=== PATIENT | male | born 1955 | race Caucasian/White ===

== ENCOUNTER 2016-07-24 16:44 | Inpatient (IN) | payer MEDICARE, SELFPAY ==
--- NOTE | ~2016-07-24 | DS ---
Unit #: [id number] #: [id number] Patient: ANJUM DEVRIES [id number] [address] [place], [place] [address] [id number] I MR#: [id number] NAME: ANJUM DEVRIES ROOM: [facility] Age: 61 Sex: M Admission Date: 07/24/2016 : 1955 Discharge Date: 07/29/2016 Attending Physician: Severino Clemons M.D. Primary Care Physician: Prashanth Black M.D. 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 PROCEDURES IN HOSPITAL Removal of broken plate and screws and distal femoral replacement with revision total knee. HOSPITAL COURSE The patient was admitted through the emergency room on 07/24/2016, when he was walking at home and his plate broke. He subsequently was taken to the operating room a day or so later, where he underwent the revision total knee with a distal femoral replacement prosthesis. He has been up with physical therapy. He is ambulating. As wound looks good, it was felt that he can be discharged home today. His hemoglobin is 8.5. His INR is 2.5. He will be discharged on Coumadin 2.5 mg daily. We will check his protime tomorrow and and adjust his dose appropriately. His pradeep to do remain in place for 2 weeks and he will have home physical therapy. His condition on discharge is improved. His medications on discharge are his routine home medicines plus Percocet 10/325 for pain and Coumadin 2.5 mg daily for DVT prophylaxis. Dictated by... Deann Weller/amairani TD: 07/29/2016 11:23 JOB #: [id number] DISCHARGE SUMMARY X Severino Clemons MD X DISCHARGE SUMMARY
--- NOTE | ~2016-07-24 | CO ---
Unit #: [id number] #: [id number] Patient: ANJUM DEVRIES WAY [id number] [address] [place], [place] [address] [id number] I MR#: [id number] NAME: ANJUM DEVRIES ROOM: [facility] Age: 61 Sex: M Admission Date: 07/24/2016 : 1955 Attending Physician: Severino Clemons M.D. Primary Care Physician: Prashanth Black M.D. CONSULTATION REPORT This is Dr. Gil demarcoating. REASON FOR CONSULTATION Preop clearance for the revision of the right total knee with plate removal. HISTORY OF PRESENT ILLNESS The patient is a 61-year-old male with history of right femur fracture, status post ORIF of the right femur on 12/26/2015, was seen by the Orthopedics and Medicine in the past for the revision of the right total knee with plate removal as scheduled on 07/2016. However, the patient was having high sugar and the procedure was scheduled for later time. The patient presented to the emergency room today complaining of right lower extremity injury with worsening pain. The patient said that the patient heard the popping sound around the knee and consult for the fracture. The patient's sugar has been running between 100 to 170s and the patient was evaluated by the Cardiology by Dr. Joseph and Medicine for the clearance in the past. Denies any fever, chills, nausea, vomiting, chest pain, dizziness. Denies any trauma. PAST MEDICAL HISTORY History of osteoarthritis, history of coronary artery disease, status post myocardial infarction with stent placement to the proximal right RCA. Hyperlipidemia, diabetes mellitus uncontrolled, depression, obesity, peripheral neuropathy, history of GERD, proteinuria, mild hyponatremia, history of nonsustained ventricular tachycardia, risk factor for obstructive sleep apnea, history of anemia, chronic low back pain, history of tobacco abuse. PAST SURGICAL HISTORY Right knee arthroplasty, right hip arthroplasty, pleural cavity biopsy, placement of cardiac stent x1 in 09/2015, left foot fracture and repair, right femur fracture and repair, gastric bypass surgery. ALLERGIES No known drug allergies. HOME MEDICATIONS He is on low dose aspirin, Lipitor, carvedilol, Coreg, Celexa, Plavix, Januvia, Levemir, Prinivil, metformin, hydrocodone, and Humalog. SOCIAL HISTORY Stopped smoking in 09/2015. He has history of tobacco abuse. Denies alcohol or illicit drug abuse. Unit #: [id number] #: [id number] Patient: ANJUM DEVRIES FAMILY HISTORY Mother with arthritis. REVIEW OF SYSTEMS 14-point review of systems performed and only pertinent positives are described, but remaining are negative. PHYSICAL EXAMINATION GENERAL: The patient is lying on bed, not in acute distress. VITAL SIGNS: Temperature 97.6, pulse 120, respiratory rate 18, blood pressure 105/64, saturating 95% on room air. HEENT: Head, atraumatic, normocephalic. Pupils equal, round, and reactive to light and accommodation. Moist mucous membrane. NECK: Supple. No JVD. LUNGS: Clear to auscultation bilaterally. No rhonchi. No wheezing. HEART: Regular rate and rhythm. ABDOMEN: Soft. Positive bowel sounds. EXTREMITIES: Right lower extremity edema without cyanosis, without clubbing. MUSCULOSKELETAL: Strength 5/5 in all extremities bilaterally to flexion and extension and decreased range of motion in the lower extremities and the patient has old surgical scars and minimal erythema at the middle side of the knee. NEUROLOGIC: Alert, awake, and oriented. No gross focal motor deficit. DIAGNOSTIC STUDIES LABORATORY RESULTS: Glucose 118, BUN 27, creatinine 1.3, sodium 139, potassium 4.5, chloride 104, bicarb 25, calcium 9.5. INR is 1. WBC 13.6, hemoglobin 11.1, hematocrit 35.2, platelet 168. IMAGING STUDIES: The patient had x-ray of the right femur shows complex orthopedic hardware failure with a fracture that is displaced loosely somewhat and displacement of the fracture of the plate and nonhealing of the fracture. ASSESSMENT AND PLAN Hardware failure with fracture of the lateral plate. Awaiting revision of the right total knee possible right total knee removal with plate removal. The patient's [place] Revised Cardiac Risk Index is equal to 2.5 to 5.4 given the patient's history of myocardial infarction, cerebrovascular accident, and insulin dependent diabetes mellitus. The patient has been seen by Cardiology and cleared for the procedure with acceptable cardiac risk. Diabetes mellitus insulin dependent. The patient's hemoglobin A1c was 11.1. Continue with insulin and tight glucose control. Check UA and EKG and the patient will be cleared for the surgery after the UA to rule out infection. We will check the EKG to rule out any arrhythmias or the ischemia. Further recommendations will follow as more lab results are available. Thank you for allowing us to see your patient and will follow the patient closely during the hospitalization. Dictated by.Deann Franco/amairani Unit #: [id number] #: [id number] Patient: ANJUM DEVRIES TD: 07/25/2016 10:08 JOB #: [id number] CONSULTATION REPORT X X CONSULTATION REPORT
--- NOTE | ~2016-07-24 | CR107 ---
[facility] A Service of [facility] RADIOLOGY TEXT RESULTS PATIENT: ANJUM DEVRIES LOCATION: C4B 448-01 : [birth year] UNIT #: [id number] AGE: [address]: Severino Clemons MD SEX: M ORDER DR: [id number] [facility] [address] [facility]. [place], [place] [address] [id number] I MR#: [id number] Acc #: [id number] NAME: ANJUM DEVRIES : 1955 SEX: M STUDY DATE/TIME: 07/24/2016 16:51 UNIT: [facility] ROOM: [facility] STUDY DESCRIPTION: CR Femur 2 Views Rt Attending Physician: Severino Clemons M.D. Ordering Physician: Omar Perez M.D. Primary Care Physician: Prashanth Black M.D. MEDICAL IMAGING REPORT This report is preliminary unless electronic signature is present EXAM Right femur 2 views HISTORY Right hip and femur pain since December 2015. Patient fractured femur. FINDINGS 2 views of the right femur demonstrates postoperative changes right total hip arthroplasty with noncemented acetabular and femoral component. These appear in expected position and alignment. Patient is status post ORIF and fixation of a complex distal femur fracture. There is fracturing through the lateral plate instrumentation with a fracture about 11 cm proximal to the distal fixation plate. Lucency across the [place] femur may indicate recurrent fracture. The patient has undergone a right total knee arthroplasty. Mild anterior angulation at the distal fracture site of the distal femur. Lucency about some of the distal screws suggest possible loosening of the distal instrumentation. IMPRESSION Complex orthopedic reconstruction of the right femur. There is apparent instrumentation failure with fracturing through the lateral side plate transfixing the patient's distal supracondylar femur fracture. This represents a complete fracture and is displaced about 5 mm and there is about a centimeter of overlap. Prominent lucency through the site of the patient's initial repair may represent a recurrent fracturing through the distal femur although this could also just represent incomplete union. There is also questionable loosening of the distal fixation screws of the lateral fixation plate as well as possible fracturing through 1 of the more distal screws. I suspect this is of secondary concern given the instrumentation failure. Dictated by... Cnidy Peterson M.D. [facility] A Service of [facility] RADIOLOGY TEXT RESULTS PATIENT: ANJUM DEVRIES LOCATION: [place] [id number] : [birth year] UNIT #: [id number] AGE: [address]: Severino Clemons MD SEX: M ORDER DR: THIS IS AN ELECTRONICALLY VERIFIED REPORT Cindy Peterson M.D. at 07/25/2016 2:05 PM CARLTON/elvira TD: 07/25/2016 09:06 JOB #: [id number] MEDICAL IMAGING REPORT COPY
--- NOTE | ~2016-07-24 | EKG ---
PATIENT: ANJUM DEVRIES UNIT #: [id number] Ventricular Rate: 112 BPM Atrial Rate: 112 BPM P-R Interval: 170 ms QRS Duration: 80 ms Q-T Interval: 312 ms QTC Calculation(Bezet): 425 ms P [place]: 78 degrees Calculated R [place]: 32 degrees Calculated T [place]: 42 degrees Diagnosis Line: Sinus tachycardia Diagnosis Line: Otherwise normal ECG Diagnosis Line: When compared with ECG of 25-DEC-2015 19:09, Diagnosis Line: No significant change was found Diagnosis Line: Confirmed by TIM CHICAS MD ([id number]) on 07/25/2016 Diagnosis Line: 9:56:37 PM INTERPRETING MD: JUAN FRANCISCO MALAVE
--- NOTE | ~2016-07-24 | HP ---
Unit #: [id number] #: [id number] Patient: ANJUM WILLINGHAM [id number] [address] [place], [place] [address] [id number] I MR#: [id number] NAME: ANJUM WILLINGHAM ROOM: [facility] Age: 61 Sex: M Admission Date: 07/24/2016 : 1955 Attending Physician: Severino Clemons M.D. Primary Care Physician: Prashanth Black M.D. HISTORY AND PHYSICAL REASON FOR ADMISSION Right femur fracture with broken hardware. HISTORY OF PRESENT ILLNESS Mr. Willingham is a pleasant 61-year-old male who presents today with right distal femur periprosthetic fracture and broken hardware plate located at the lateral midshaft right femur. The patient reports that on July 16, 2016 he was scheduled to undergo right total knee revision for his distal femur periprosthetic nonunion fracture. However, his A1C was too high. He was then sent to see a styrene dehydration reactor operator. He reports his sugars are much improved. He is doing much better. Then, yesterday on 07/24/2016 the patient stepped "wrong" at home and broke his brace that was supporting his right lower extremity. The knee gave out on him. He reports he cannot bear weight. He does have a lot of movement within the distal femur according to the patient. There is no numbness but positive weakness and instability due to pain. PAST MEDICAL HISTORY 1. Hypertension. 2. Diabetes. 3. AVN of the right hip. 4. Depression. 5. GERD. 6. Stroke. MEDICATIONS Medications include metformin, Januvia, Plavix, Levemir, aspirin, lisinopril, Coreg, Lipitor, Celexa. ALLERGIES No known drug allergies. SURGICAL HISTORY 1. Right total knee arthroplasty. 2. Right distal femur ORIF. 3. Right total hip arthroplasty. 4. Lung biopsy. SOCIAL HISTORY Patient lives at home with his . He is a former smoker, quit in 2016. He denies any alcohol or illicit drug use. FAMILY HISTORY Family history is insignificant. Unit #: [id number] #: [id number] Patient: ANJUM WILLINGHAM REVIEW OF SYSTEMS Ten organ systems reviewed. The patient denies any blurry vision, congestion, sore throat, shortness of breath, chest pain, abdominal pain, urinary incontinence, numbness, tingling, skin ulcers or lesions, anxiety, depression. Positive for joint pain. PHYSICAL EXAMINATION GENERAL: No acute distress. Alert and oriented x3. VITALS: Temp 98.9, pulse 114, respirations 18, blood pressure 137/78. HEENT: PERRLA. Nonicteric sclera. THORAX: Trachea midline. No thyromegaly. CARDIAC: S1, S2. No extra sounds. No murmurs. LUNGS: Clear to auscultation. No rales or rhonchi. ABDOMEN: Nondistended, nontender. Positive bowel sounds. : Deferred. MUSCULOSKELETAL: No erythema or ecchymosis; 2+ dorsalis pedis bilateral pulses. NEUROLOGIC: Cranial nerves II-XII intact. SKIN: Cool and dry. PSYCHIATRIC: Good insight. Good judgment. Mood and affect are pleasant. DIAGNOSTIC STUDIES LABS ON ADMISSION: White count 9.7, hemoglobin 10, hematocrit 31.8, platelets 141. INR is 1. Sodium 138, potassium 4.1, chloride 106, bicarb 27, BUN 29, creatinine 1.1, glucose 189. X-RAYS: Two views of the right hip and the right femur were ordered and reviewed today in the office and shows a nonunion right distal femur periprosthetic fracture with broken hardware plate at the lateral midshaft right femur. ASSESSMENT Nonunion right distal periprosthetic femur fracture with broken hardware. PLAN I have discussed treatment options with the patient. I have recommended a right total knee revision to be done by Dr. Clemons this afternoon. The risks and benefits of the procedure were explained, as well as the description of the procedure in its entirety, along with any complications. The patient has decided to proceed. Will go ahead and get this scheduled, get the usual preoperative lab work and testing complete and have the patient medically cleared for surgery. We will have physical therapy see the patient postoperatively. The patient will plan for home with home health either Saturday or Saturday depending on physical therapy and pain control. Dictated by Davon Granger TD: 07/25/2016 10:45 JOB #: [id number] Unit #: [id number] #: [id number] Patient: ANJUM WILLINGHAM HISTORY AND PHYSICAL X Renu Denny X HISTORY AND PHYSICAL
--- NOTE | ~2016-07-24 | OR ---
Unit #: [id number] #: [id number] Patient: ANJUM DERVIES WAY [id number] [address] [place], [place] [address] [id number] I MR#: [id number] NAME: ANJUM DEVRIES ROOM: [facility] Date of Procedure: 07/25/2016 Admission Date: 07/24/2016 Surgeon: Severino Clemons M.D. : 1955 Attending Physician: Severino Clemons M.D. Primary Care Physician: Prashanth Black M.D. OPERATIVE REPORT PREOPERATIVE DIAGNOSIS Nonunion right distal femoral periprosthetic fracture with failed plate. POSTOPERATIVE DIAGNOSIS Nonunion right distal femoral periprosthetic fracture with failed plate. PROCEDURE PERFORMED Removal of failed hardware and distal femoral replacement with revision total knee. ASSISTANTS Tyron Spangler and Jigna Navarro. ANESTHESIA Adductor canal block plus general. ESTIMATED BLOOD LOSS About 400. OPERATIVE INDICATION This is a 61-year-old gentleman, who has had a total knee in the past and suffered a periprosthetic femur fracture that I plated, he was gone onto nonunion and yesterday he was standing at home felt a pop and was unable to bear weight, came to the emergency room and was found to have a fracture in the plate. He is brought to the operating room today for removal of failed hardware and revision knee surgery with distal femoral replacement. DESCRIPTION OF PROCEDURE The patient was brought to the holding room, given appropriate preoperatively antibiotics. These will be continued postop, but discontinued within 23 hours the start time of surgery. The patient was then given a general anesthetic. He was on a beanbag. He was placed in a slight lateral position, so that we could use the proximal portion of the lateral incision to remove the proximal portion of the broken plate. A straight lateral incision was made. Subcutaneous dissected away and the fascia was split and then the vastus lateralis was split exposing the proximal portion of the plate. There were 2 cerclage cables at the top. These were cut. We then removed all the screws from this portion of the plate and then lifted the plate out. The 2 cerclage cables were also removed. We then irrigated this wound out and closed the vastus lateralis with interrupted 0 Vicryl. The tensor fascia was closed with a running 0 Unit #: [id number] #: [id number] Patient: ANJUM DEVRIES Vicryl. Subcutaneous was closed with 0 Vicryl and pradeep. Sterile dressing was applied over this. We then applied a sterile tourniquet on the proximal portion of the thigh. This was inflated to 250. The anterior knee incision was used and the incision was carried proximally and medially. The subcutaneous dissected away. Medial arthrotomy performed. The fluid was cultured, but it was bloody. The patella was slid to the side. The arthrotomy was extended proximally and we then removed the polyethylene from the tibial tray. We then proceeded to excise the distal fragment of bone and the femoral component subperiosteally around the entire distal femur. Before we did this, we had measured that it was 110 mm to the joint line from the fracture spot. With careful dissection especially posteriorly, we were able to resect the distal femoral bone and the remaining plate was still attached as was the femoral component. Once this was out, we loosened the tibial component and removed this along with the cement. The patellar component was inspected and it was found to be intact. We then released the tourniquet to be sure there had been no vascular injuries posteriorly. There was minimal bleeding. A few small veins were identified. These were cauterized and then after this was done, the tourniquet was reinflated. We then exposed the distal end of the proximal femur, placed this 16-gauge cerclage wire around this and tightened it down, but did not cut it to used as a retractor. We then reamed the canal and then the conical reamer was used for the [place] femoral sleeve and the broaches were used up to a size 31. This was still sitting proud, but it seemed to be a very tight fit. We then reamed the tibia up to a 14 x 75. I used the conical reamer and then the broaches for the MBT sleeve up to a 53. The tibia was sized at a 2.5. We then did a trial reduction with an extra-small right LPS distal femoral replacement and we had to use a +5 sleeve adapter and a 25 mm segmental component to give appropriate leg length. With the trials in place, the patella seemed to fit at the appropriate position in the trochlear groove while the knee was in full extension. We then removed all the trials. The real components were opened. The tibia was assembled. Two packages of cement were mixed. The tibia was impacted cementing under the tray only. The femur was then applied uncemented with the femoral component. External rotation adjusted appropriately. We then found that we needed the 14 mm hinged insert for the tray gave appropriate soft tissue tension, so the 14 mm for the extra small component was opened and applied to the tibia. The hinged pin was positioned and the knee had an excellent range of motion and the patella tracked appropriately. The tourniquet was released once again. The knee was irrigated out with Betadine and bacitracin. We then used the ropivacaine injection. A drain was positioned. The medial arthrotomy was closed with 0 Ethibond and this extension superiorly was closed with 0 Vicryl. The subcutaneous was closed with 0 and 2-0 Vicryl and pradeep in the skin and the patient's dressing was applied and the general anesthetic reversed. Both assistants, Tyron Spangler and Jigna Navarro, were present throughout the entire case. Dictated by... Deann Weller/amairani TD: 07/26/2016 07:18 JOB #: [id number] Unit #: [id number] #: [id number] Patient: ANJUM DEVRIES OPERATIVE REPORT X Severino Clemons MD X PROCEDURE OPERATIVE NOTE
--- NOTE | ~2016-07-24 | CR170 ---
[facility] A Service of [facility] RADIOLOGY TEXT RESULTS PATIENT: ANJUM DEVRIES LOCATION: [place] [address]- : [birth year] UNIT #: [id number] AGE: [address]: Severino Clemons MD SEX: M ORDER DR: [id number] [facility] [address] [facility]. [place], [place] [address] [id number] I MR#: [id number] Acc #: [id number] NAME: ANJUM DEVRIES : 1955 SEX: M STUDY DATE/TIME: 07/25/2016 16:55 UNIT: [facility] ROOM: [facility] STUDY DESCRIPTION: CR Knee 2 Views Rt Attending Physician: Severino Clemons M.D. Ordering Physician: Severino Clemons M.D. Primary Care Physician: Prashanth Black M.D. MEDICAL IMAGING REPORT This report is preliminary unless electronic signature is present EXAM Right knee 2 views HISTORY Status post right knee replacement with hardware failure. COMPARISON 12/25/2015 FINDINGS 2 views of the right knee demonstrate modular component replacement of patient's right knee, right total knee arthroplasty. This is apparently a constrained component. Normal expected alignment. Soft tissue swelling and soft tissue gas noted consistent with recent operative intervention. Lateral drains identified. Lateral skin pradeep also noted. IMPRESSION Status post apparent revision arthroplasty right knee with placement of a modular constrained right knee component in expected position and alignment with normal expected postoperative findings. Dictated by... Cindy Peterson M.D. THIS IS AN ELECTRONICALLY VERIFIED REPORT Cindy Peterson M.D. at 07/26/2016 8:42 PM Babs TD: 07/26/2016 08:16 JOB #: [id number] MEDICAL IMAGING REPORT COPY
--- NOTE | ~2016-07-24 | CR151 ---
[facility] A Service of [facility] RADIOLOGY TEXT RESULTS PATIENT: ANJUM DEVRIES LOCATION: [facility] 448- : [birth year] UNIT #: [id number] AGE: [address]: Severino Clemons MD SEX: M ORDER DR: [id number] [place] [id number] [facility]. [place], [place] [address] [id number] I MR#: [id number] Acc #: [id number] NAME: ANJUM DEVRIES : 1955 SEX: M STUDY DATE/TIME: 07/24/2016 16:49 UNIT: [facility] ROOM: [facility] STUDY DESCRIPTION: CR Hip Min 2 Views Rt Attending Physician: Severino Clemons M.D. Ordering Physician: Omar Perez M.D. Primary Care Physician: Prashanth Black M.D. MEDICAL IMAGING REPORT This report is preliminary unless electronic signature is present EXAM Right hip. HISTORY 61-year-old male complains of right hip pain since December 2015. Patient suffered a fracture December 2015, pain radiating to knee. TECHNIQUE AP pelvis and frog lateral view of the right hip submitted. FINDINGS Patient status post right total hip arthroplasty with noncemented acetabular and femoral component. No evidence of a periprosthetic fracture or loosening. Partially visualized is plate and screw fixation and tension band wires around the proximal fixation plate from apparent ORIF of a right femur fracture. Soft tissues unremarkable. IMPRESSION Status post right total hip arthroplasty. No evidence of a periprosthetic fracture or loosening. Partially visualizes is instrumentation from ORIF of a right femur fracture. Dictated by... Cindy Peterson M.D. THIS IS AN ELECTRONICALLY VERIFIED REPORT Cindy Peterson M.D. at 07/25/2016 2:05 PM CARLTON/leodan TD: 07/25/2016 09:01 JOB #: [id number] [facility] A Service of [facility] RADIOLOGY TEXT RESULTS PATIENT: ANJUM DEVRIES LOCATION: [facility] 448- : [birth year] UNIT #: [id number] AGE: [address]: Severino Clemons MD SEX: M ORDER DR: MEDICAL IMAGING REPORT COPY
[~2016-07-24 16:44] MED LIST: ASPIRIN81 M2 PO; ASPIRIN81 MG PO; BRILINTA90 MG PO; CELEXA20 M1; CELEXA20 M1 PO; CENTRUM SILVER PO; CLOPIDOGREL75 MG PO; COREG6.25 M1; COREG6.25 MG PO; COUMADIN7.5 MG PO; CYMBALTA30 MG PO; GLUCOPHAGE XR750 MG PO; GLUCOTROL PO; HYDROCODON-ACE1 EAC1 PO; HYDROCODON-ACE1 EAC5 PO; INSULIN PEN; JANUVIA PO; LEVEMIR100 UNITS/ SUBQ; LIPITOR40 MG PO; LISINOPRIL2.5 MG PO; LISINOPRIL5 MG PO; LOVENOX40 MG/0.4 INJ; METFORMIN HCL850 MG PO; METFORMIN HYDRO25 GM PO; MOBIC15 MG PO; NEURONTIN300 MG PO; NICOTINE TRANSD21 MG EXT; NO MEDICATIONS; PRAVACHOL20 MG PO; TOPROL XL50 MG PO; TYLENOL325 M1 PO; ZESTRIL5 MG PO
[2016-07-24] MEDS ORDERED: LIPITOR40 MG PO (18:06)
[2016-07-24] MEDS ORDERED: LOW DOSE ASPIRI81 M1 PO (18:06)
[2016-07-24] MEDS ORDERED: COREG6.25 MG PO (18:07)
[2016-07-24] MEDS ORDERED: COREG12.5 MG PO (18:07)
[2016-07-24] MEDS ORDERED: JANUVIA PO (18:08)
[2016-07-24] MEDS ORDERED: CLOPIDOGREL75 MG PO (18:08)
[2016-07-24] MEDS ORDERED: CELEXA20 MG PO (18:08)
[2016-07-24] MEDS ORDERED: LEVEMIR100 UNITS/ SUBQ (18:09)
[2016-07-24] MEDS ORDERED: PRINIVIL5 MG PO (18:09)
[2016-07-24] MEDS ORDERED: METFORMIN HCL750 MG PO (18:10)
[2016-07-24] MEDS ORDERED: HYDROCODON-ACE1 EAC5 PO (18:11)
[2016-07-24] MEDS ORDERED: HUMALOG100 U/ML SUBQ (18:11)
[2016-07-24 18:14] LABS: BASOPHIL# 0.1 X10e3 (0-0.3); BASOPHIL% 0.8 % (0-2.5); EOSINOPHIL# 0.1 X10e3 (0-0.7); EOSINOPHIL% 0.9 % (0.0-7.0); HEMATOCRIT 35.2 % (38.0-50.0); HEMOGLOBIN 11.1 gm/dL (13.0-16.0); LYMPHOCYTE# 2.8 X10e3 (1.0-3.5); LYMPHOCYTE% 20.9 % (17.0-45.0); MEAN CELL VOLUME 84.9 FL (83-96); MEAN CORPUSCULAR HEMOGLOBIN 26.8 PG (28-34); MEAN CORPUSCULAR HGB CONC 31.5 g/dL (30-36); MEAN PLATELET VOLUME 9.7 FL (6.5-11.5); MONOCYTE% 7.7 % (3.0-12.0); NEUTROPHIL# 9.5 X10e3 (1.5-7.1); NEUTROPHIL% 69.7 % (40-75); PLATELET COUNT 168 X10e3 (140-420); RED BLOOD COUNT 4.15 X10e (3.90-5.60); RED CELL DISTRIBUTION WIDTH 14.9 % (11.0-15.5); WHITE BLOOD COUNT 13.6 X10e3 (4.0-10.5)
[2016-07-24 18:15] LABS: DIFF IND NO
[2016-07-24 18:22] LABS: PARTIAL THROMBOPLASTIN TIME 25.6 SECONDS (23.5-31.3); PROTHROMBIN TIME (PATIENT) 10.7 SECONDS (9.6-11.5)
[2016-07-24 18:33] LABS: BUN/CREATININE RATIO 20.76; CALCIUM SERUM 9.5 mg/dL (8.4-10.2); CREATININE SERUM 1.3 mg/dL (0.6-1.4); GLOM FILT RATE Estimated 59.8 mL/min (>60); POTASSIUM 4.5 mmol/L (3.5-5.1)
[2016-07-24 23:42] LABS: URINE BILIRUBIN NEG (NEG); URINE BLOOD 1+ (NEG); URINE GLUCOSE NORM (NORM); URINE KETONE NEG (NEG); URINE LEUKOCYTE ESTERASE NEG (NEG); URINE NITRATE NEG (NEG); URINE PROTEIN 2+ (NEG); URINE SPECIFIC GRAVITY 1.025 (1.003-1.035); URINE UROBILINOGEN NORM (NORM)
[2016-07-24 23:44] LABS: URINE APPEARANCE CLOUDY; URINE COLOR YELLOW
[2016-07-24 23:51] LABS: CULTURE INDICATED? NO
[2016-07-25 04:35] LABS: BASOPHIL# 0.1 X10e3 (0-0.3); BASOPHIL% 0.9 % (0-2.5); DIFF IND NO; EOSINOPHIL# 0.1 X10e3 (0-0.7); EOSINOPHIL% 1.3 % (0.0-7.0); HEMATOCRIT 31.8 % (38.0-50.0); LYMPHOCYTE# 2.7 X10e3 (1.0-3.5); LYMPHOCYTE% 27.5 % (17.0-45.0); MEAN CELL VOLUME 85.1 FL (83-96); MEAN CORPUSCULAR HEMOGLOBIN 26.9 PG (28-34); MEAN CORPUSCULAR HGB CONC 31.6 g/dL (30-36); MONOCYTE% 9.9 % (3.0-12.0); NEUTROPHIL# 5.8 X10e3 (1.5-7.1); NEUTROPHIL% 60.4 % (40-75); PLATELET COUNT 141 X10e3 (140-420); RED BLOOD COUNT 3.73 X10e (3.90-5.60); RED CELL DISTRIBUTION WIDTH 14.9 % (11.0-15.5); WHITE BLOOD COUNT 9.7 X10e3 (4.0-10.5)
[2016-07-25 04:56] LABS: BLOOD UREA NITROGEN 29 mg/dL (9-23); BUN/CREATININE RATIO 26.36; CALCIUM SERUM 8.9 mg/dL (8.4-10.2); CARBON DIOXIDE 27 mmol/L (22-31); CHLORIDE 106 mmol/L (100-111); CREATININE SERUM 1.1 mg/dL (0.6-1.4); GLOM FILT RATE Estimated ABOVE60 mL/min (>60); GLUCOSE FASTING 189 mg/dL (70-110); POTASSIUM 4.1 mmol/L (3.5-5.1); SODIUM 138 mmol/L (135-145)
[2016-07-26 04:08] LABS: BASOPHIL% 0.2 % (0-2.5); DIFF IND NO; HEMATOCRIT 30.5 % (38.0-50.0); HEMOGLOBIN 9.7 gm/dL (13.0-16.0); LYMPHOCYTE# 1.2 X10e3 (1.0-3.5); LYMPHOCYTE% 10.7 % (17.0-45.0); MEAN CELL VOLUME 85.6 FL (83-96); MEAN CORPUSCULAR HEMOGLOBIN 27.2 PG (28-34); MEAN CORPUSCULAR HGB CONC 31.8 g/dL (30-36); MEAN PLATELET VOLUME 10.8 FL (6.5-11.5); MONOCYTE# 0.8 X10e3 (0-1.0); MONOCYTE% 7.4 % (3.0-12.0); NEUTROPHIL% 81.7 % (40-75); PLATELET COUNT 153 X10e3 (140-420); RED BLOOD COUNT 3.56 X10e (3.90-5.60); RED CELL DISTRIBUTION WIDTH 14.7 % (11.0-15.5)
[2016-07-26 04:22] LABS: INR 1.1; PROTHROMBIN TIME (PATIENT) 11.1 SECONDS (9.6-11.5)
[2016-07-26 04:32] LABS: BLOOD UREA NITROGEN 24 mg/dL (9-23); CARBON DIOXIDE 26 mmol/L (22-31); CHLORIDE 101 mmol/L (100-111); GLOM FILT RATE Estimated ABOVE60 mL/min (>60); GLUCOSE FASTING 263 mg/dL (70-110); MAGNESIUM 1.5 mg/dL (1.6-3.0); POTASSIUM 4.3 mmol/L (3.5-5.1); SODIUM 136 mmol/L (135-145)
[2016-07-26 15:18] LABS: HEMATOCRIT 26.4 % (38.0-50.0); HEMOGLOBIN 8.4 gm/dL (13.0-16.0)
[2016-07-27 03:13] LABS: BASOPHIL% 0.4 % (0-2.5); EOSINOPHIL# 0.1 X10e3 (0-0.7); EOSINOPHIL% 1.2 % (0.0-7.0); HEMATOCRIT 23.4 % (38.0-50.0); HEMOGLOBIN 7.6 gm/dL (13.0-16.0); LYMPHOCYTE# 2.2 X10e3 (1.0-3.5); LYMPHOCYTE% 23.6 % (17.0-45.0); MEAN CELL VOLUME 85.2 FL (83-96); MEAN CORPUSCULAR HEMOGLOBIN 27.8 PG (28-34); MEAN CORPUSCULAR HGB CONC 32.6 g/dL (30-36); MEAN PLATELET VOLUME 10.3 FL (6.5-11.5); MONOCYTE# 0.9 X10e3 (0-1.0); MONOCYTE% 9.9 % (3.0-12.0); NEUTROPHIL# 5.9 X10e3 (1.5-7.1); NEUTROPHIL% 64.9 % (40-75); PLATELET COUNT 119 X10e3 (140-420); RED BLOOD COUNT 2.75 X10e (3.90-5.60); WHITE BLOOD COUNT 9.2 X10e3 (4.0-10.5)
[2016-07-27 03:14] LABS: DIFF IND YES
[2016-07-27 03:22] LABS: INR 1.9
[2016-07-27 03:31] LABS: BLOOD UREA NITROGEN 32 mg/dL (9-23); BUN/CREATININE RATIO 26.66; CARBON DIOXIDE 26 mmol/L (22-31); CHLORIDE 101 mmol/L (100-111); CREATININE SERUM 1.2 mg/dL (0.6-1.4); GLOM FILT RATE Estimated ABOVE60 mL/min (>60); GLUCOSE FASTING 137 mg/dL (70-110); MAGNESIUM 1.7 mg/dL (1.6-3.0); POTASSIUM 3.9 mmol/L (3.5-5.1); SODIUM 130 mmol/L (135-145)
[2016-07-27 03:52] LABS: HYPOCHROMIA SL; PLATELET ESTIMATE DECREASED (NORMAL)
[2016-07-27 03:53] LABS: MICROCYTOSIS SL
[2016-07-27 09:41] LABS: HEMOGLOBIN 8.1 gm/dL (13.0-16.0); MEAN CELL VOLUME 84.9 FL (83-96); MEAN CORPUSCULAR HEMOGLOBIN 27.6 PG (28-34); MEAN CORPUSCULAR HGB CONC 32.6 g/dL (30-36); MEAN PLATELET VOLUME 9.9 FL (6.5-11.5); RED BLOOD COUNT 2.94 X10e (3.90-5.60); RED CELL DISTRIBUTION WIDTH 15.4 % (11.0-15.5); WHITE BLOOD COUNT 9.2 X10e3 (4.0-10.5)
[2016-07-28 03:48] LABS: BASOPHIL# 0.1 X10e3 (0-0.3); BASOPHIL% 0.6 % (0-2.5); DIFF IND NO; EOSINOPHIL# 0.1 X10e3 (0-0.7); EOSINOPHIL% 1.4 % (0.0-7.0); HEMATOCRIT 25.2 % (38.0-50.0); HEMOGLOBIN 8.2 gm/dL (13.0-16.0); LYMPHOCYTE# 2.1 X10e3 (1.0-3.5); LYMPHOCYTE% 19.2 % (17.0-45.0); MEAN CELL VOLUME 85.4 FL (83-96); MEAN CORPUSCULAR HEMOGLOBIN 27.8 PG (28-34); MEAN CORPUSCULAR HGB CONC 32.5 g/dL (30-36); MEAN PLATELET VOLUME 10.3 FL (6.5-11.5); MONOCYTE# 1.1 X10e3 (0-1.0); MONOCYTE% 9.8 % (3.0-12.0); NEUTROPHIL# 7.5 X10e3 (1.5-7.1); PLATELET COUNT 144 X10e3 (140-420); RED BLOOD COUNT 2.94 X10e (3.90-5.60); RED CELL DISTRIBUTION WIDTH 14.7 % (11.0-15.5); WHITE BLOOD COUNT 10.8 X10e3 (4.0-10.5)
[2016-07-28 04:16] LABS: BLOOD UREA NITROGEN 25 mg/dL (9-23); CALCIUM SERUM 8.5 mg/dL (8.4-10.2); CARBON DIOXIDE 26 mmol/L (22-31); CHLORIDE 98 mmol/L (100-111); GLOM FILT RATE Estimated ABOVE60 mL/min (>60); GLUCOSE FASTING 162 mg/dL (70-110); MAGNESIUM 1.8 mg/dL (1.6-3.0); POTASSIUM 4.1 mmol/L (3.5-5.1); SODIUM 132 mmol/L (135-145)
[2016-07-29 03:47] LABS: BASOPHIL# 0.1 X10e3 (0-0.3); BASOPHIL% 0.9 % (0-2.5); EOSINOPHIL# 0.2 X10e3 (0-0.7); EOSINOPHIL% 2.1 % (0.0-7.0); HEMATOCRIT 26.4 % (38.0-50.0); HEMOGLOBIN 8.5 gm/dL (13.0-16.0); LYMPHOCYTE# 1.5 X10e3 (1.0-3.5); LYMPHOCYTE% 15.4 % (17.0-45.0); MEAN CELL VOLUME 85.7 FL (83-96); MEAN CORPUSCULAR HEMOGLOBIN 27.7 PG (28-34); MEAN CORPUSCULAR HGB CONC 32.3 g/dL (30-36); MEAN PLATELET VOLUME 10.2 FL (6.5-11.5); MONOCYTE% 10.5 % (3.0-12.0); NEUTROPHIL# 6.9 X10e3 (1.5-7.1); NEUTROPHIL% 71.1 % (40-75); PLATELET COUNT 164 X10e3 (140-420); RED BLOOD COUNT 3.08 X10e (3.90-5.60); WHITE BLOOD COUNT 9.6 X10e3 (4.0-10.5)
[2016-07-29 03:50] LABS: DIFF IND NO
[2016-07-29 04:01] LABS: INR 2.5; PROTHROMBIN TIME (PATIENT) 26.7 SECONDS (9.6-11.5)
[2016-07-29] MEDS ORDERED: PERCOCET 10/3251 TAB PO (10:48)
[2016-07-29] MEDS ORDERED: COUMADIN2.5 MG PO (10:49)
== END 2016-07-29 12:39 | disposition home health service (06) | DRG 467 ==
LOC: CED 16:44 → CEDOF 17:46 → C4B 20:24
PROVIDERS: Emergency Medicine; Internal Medicine; Internal Medicine Endocrinology, Diabetes & Metabolism; Nurse Practitioner; Orthopaedic Surgery
PROC: 0SPV0JZ Removal of Synthetic Substitute from Right Knee Joint, Tibial Surface, Open Approach (ICD-10-PCS; 2016-07-25)
PROC: 0SRV0J9 Replacement of Right Knee Joint, Tibial Surface with Synthetic Substitute, Cemented, Open Approach (ICD-10-PCS; 2016-07-25)
PROC: 0SRT0JA Replacement of Right Knee Joint, Femoral Surface with Synthetic Substitute, Uncemented, Open Approach (ICD-10-PCS; 2016-07-25)
PROC: 0SPT0JZ Removal of Synthetic Substitute from Right Knee Joint, Femoral Surface, Open Approach (ICD-10-PCS; 2016-07-25)
PROC: 0QHB04Z Insertion of Internal Fixation Device into Right Lower Femur, Open Approach (ICD-10-PCS; 2016-07-25)
PROC: 0QPB04Z Removal of Internal Fixation Device from Right Lower Femur, Open Approach (ICD-10-PCS; principal; 2016-07-25 14:00)
DX: T84.114A Breakdown (mechanical) of internal fixation device of right femur, initial encounter (principal); S72.401K Unspecified fracture of lower end of right femur, subsequent encounter for closed fracture with nonunion; M97.11XA Periprosthetic fracture around internal prosthetic right knee joint, initial encounter; I10 Essential (primary) hypertension; W19.XXXD Unspecified fall, subsequent encounter; Y79.1 Therapeutic (nonsurgical) and rehabilitative orthopedic devices associated with adverse incidents; E78.5 Hyperlipidemia, unspecified; E11.9 Type 2 diabetes mellitus without complications; Z79.4 Long term (current) use of insulin; F32.9 Major depressive disorder, single episode, unspecified; K21.9 Gastro-esophageal reflux disease without esophagitis; Z87.891 Personal history of nicotine dependence; M19.90 Unspecified osteoarthritis, unspecified site; I25.2 Old myocardial infarction; E66.9 Obesity, unspecified; Z68.30 Body mass index [BMI] 30.0-30.9, adult; I25.10 Atherosclerotic heart disease of native coronary artery without angina pectoris; Z95.5 Presence of coronary angioplasty implant and graft; G89.29 Other chronic pain; M54.5 Low back pain; Z96.651 Presence of right artificial knee joint; Z96.641 Presence of right artificial hip joint; Z86.73 Personal history of transient ischemic attack (TIA), and cerebral infarction without residual deficits
CPT/HCPCS: 36415; 73502; 73552; 73560; 80048; 81003; 82947; 83735; 85014; 85018; 85025; 85027; 85610; 85730; 86850; 86900; 86901; 86923; 87070; 87075; 87205; 93005; 94760; 97110; 97116; 97162; 97166; 97530; 99285; C1776; G8978-GP; G8979-GP; G8980-GP; G8987-GO; G8988-GO; G8989-GO; J0131; J0171; J0690; J0735; J1100; J1170; J1650; J1815; J1885; J2250; J2270; J2370; J2405; J2795; J3010; J3230; P9016

== ENCOUNTER 2016-08-27 21:15 | Inpatient (IN) | payer MEDICARE, SELFPAY ==
--- NOTE | ~2016-08-27 | CT16 ---
[facility] A Service of [facility] & [facility] RADIOLOGY TEXT RESULTS PATIENT: ANJUM DEVRIES LOCATION: [address]- : [birth year] UNIT #: [id number] AGE: [address]: Abby Askew MD SEX: M ORDER DR: [id number] [facility] [address] [facility]. [place], [place] [address] [id number] I MR#: [id number] Acc #: [id number] NAME: ANJMU DEVRIES : 1955 SEX: M STUDY DATE/TIME: 08/27/2016 22:58 UNIT: [facility] ROOM: [facility] STUDY DESCRIPTION: CT Angio Chest for PE Attending Physician: Abby Askew M.D. Ordering Physician: Bill Hardy M.D. Primary Care Physician: Prashanth Black M.D. MEDICAL IMAGING REPORT This report is preliminary unless electronic signature is present EXAM CT scan of the chest with pulmonary embolus protocol INDICATIONS Shortness of air for 1 day. Previous leg surgery a month ago. TECHNIQUE The patient was given 80 mL of Isovue-370 and spiral imaging was performed through the chest. 3-D reconstructions of the pulmonary arteries were generated. This CT exam was performed with one or more of the following radiation dose reduction techniques: Automatic exposure control, adjustment of mA and/or kV according to patient size, and iterative reconstruction. FINDINGS Motion affects the images through the lung bases. There is no visualized pulmonary embolus. There are small fhku-nlgcwqq-ddqx-right effusions. There is no mediastinal or hilar adenopathy. The aorta is normal in size. There is no dissection. There is a large, calcified granuloma in the left upper lobe. There is mild bibasilar atelectasis. The bones are unremarkable. IMPRESSION 1. Study is slightly degraded by motion, but there is no visible evidence of pulmonary embolus. 2. Small left greater than right effusions with left greater than right basilar atelectasis. 3. Otherwise, normal. Dictated by... [facility] A Service of [facility] & [facility] RADIOLOGY TEXT RESULTS PATIENT: ANJUM DEVRIES LOCATION: [address] : [birth year] UNIT #: [id number] AGE: [address]: Abby Askew MD SEX: M ORDER DR: Tim Davis M.D. THIS IS AN ELECTRONICALLY VERIFIED REPORT Tim Davis M.D. at 08/28/2016 5:54 AM FEL/psc TD: 08/28/2016 02:56 JOB #: [id number] MEDICAL IMAGING REPORT Page 1 of 1 COPY
--- NOTE | ~2016-08-27 | CO ---
Unit #: [id number] #: [id number] Patient: ANJUM DEVRIES [id number] [address] [place], [place] [address] [id number] I MR#: [id number] NAME: ANJUM DEVRIES ROOM: 337 Age: 61 Sex: M Admission Date: 08/28/2016 : 1955 Attending Physician: Marina Aguero M.D. Primary Care Physician: Prashanth Black M.D. Consultation Date: 08/28/2016 CONSULTATION REPORT PRIMARY CARE PHYSICIAN Prashanth Black M.D. REASON FOR CONSULTATION Possible gastrointestinal bleed. HISTORY OF PRESENT ILLNESS Mr. Todd is a 61-year-old white gentleman with a previous history of coronary artery disease, myocardial infarction, diabetes, hypertension, stroke. He has been admitted with respiratory failure after respiratory arrest. The patient is on the ventilator. His hemoglobin on admission was found to be 5.8 and the patient has received multiple units of packed cell transfusions. He is Hemoccult-positive, but there is no history of overt GI bleed in the form of hematemesis, melena, or hematochezia. PAST MEDICAL HISTORY Significant for history of coronary artery disease, status post myocardial infarction and nonsustained ventricular tachycardia, history of hypertension, hyperlipidemia, depression, obesity, peripheral neuropathy, gastroesophageal reflux, diabetic renal disease. PAST SURGICAL HISTORY Included right knee replacement, right hip arthroplasty, right femur fracture and repair, gastric bypass surgery, left foot fracture and repair. MEDICATIONS His medications at home include Coumadin as well as Lipitor, Coreg, Celexa, Plavix, Januvia, Levemir, lisinopril, metformin, and . ALLERGIES He has no known drug allergies. FAMILY HISTORY Significant for bronchial asthma, hyperlipidemia, and degenerative joint disease. No family history of colon, pancreatic cancer, or liver disease. SOCIAL HISTORY Lives at home with his . History of tobacco use. Does not drink alcohol. REVIEW OF SYSTEMS Detailed review of organ systems not possible due to the fact the patient is intubated and on the ventilator. Unit #: [id number] #: [id number] Patient: ANJUM DEVRIES PHYSICAL EXAMINATION GENERAL: He is sedated, on the ventilator. VITAL SIGNS: Show a temperature of 97.9, pulse is 80 per minute and regular, respiratory rate is 18, blood pressure 110/53. He weighs 227 pounds and appears overweight. HEENT: He has moderate pallor. There being no icterus or lymphadenopathy. Grade 1 pitting peripheral edema. CARDIOVASCULAR: Normal heart sounds. No murmurs on auscultation. LUNGS: Reveal normal breath sounds. Good air entry. ABDOMEN: Soft, obese, and nontender. Liver and spleen are not palpable. Bowel sounds are normal. DIAGNOSTIC STUDIES LABORATORY RESULTS: Hemoglobin of 7.5; before transfusion, hemoglobin was 5.8. BUN and creatinine are 22 and 1.1, and INR is 1.8. CLINICAL IMPRESSION It is unlikely the patient's acute upper gastrointestinal bleed as his BUN and creatinine normal. I do not have any record of the patient having had an endoscopic evaluation in the past. Therefore, at least an upper endoscopy is warranted to look for any potential or actual source of blood loss and do endotherapy if indicated. This will be performed tomorrow. The pros and cons of procedure, potential risks, and complications were discussed with the family and they were reassured. Thank you for asking me to see this gentleman. I appreciate the consult. Dictated by... Benson Renae M.D. LUIS/amairani TD: 09/01/2016 07:24 JOB #: [id number] CONSULTATION REPORT Page 1 of 1 X Benson Renae MD CONSULTATION REPORT
--- NOTE | ~2016-08-27 | CR72 ---
[facility] A Service of [facility] & [facility] RADIOLOGY TEXT RESULTS PATIENT: ANJUM DEVRIES LOCATION: [place] [address] : [birth year] UNIT #: [id number] AGE: [address]: Marina Aguero MD SEX: M ORDER DR: [id number] [place] [address] [facility]. [place], [place] [address] [id number] I MR#: [id number] Acc #: [id number] NAME: ANJUM DEVRIES : 1955 SEX: M STUDY DATE/TIME: 08/30/2016 5:00 UNIT: [facility] ROOM: [facility] STUDY DESCRIPTION: CR Chest Single View Portable Attending Physician: Marina Aguero M.D. Ordering Physician: Shanelle Peters M.D. Primary Care Physician: Prashanth Black M.D. MEDICAL IMAGING REPORT This report is preliminary unless electronic signature is present EXAM Portable chest INDICATION Respiratory failure, shortness of air. Endotracheal tube removal. FINDINGS This portable view of the chest is compared with yesterday's study. The endotracheal tube and nasogastric tube have been removed. The lungs have improved and now appear almost clear with resolution of the basilar infiltrates. Dictated by... Tim Davis M.D. THIS IS AN ELECTRONICALLY VERIFIED REPORT Tim Davis M.D. at 08/30/2016 2:15 PM VINH/mila TD: 08/30/2016 06:30 JOB #: [id number] MEDICAL IMAGING REPORT Page 1 of 1 COPY
--- NOTE | ~2016-08-27 | CO ---
Unit #: [id number] #: [id number] Patient: ANJUM DEVRIES [id number] [address] [place], [place] [address] [id number] I MR#: [id number] NAME: ANJUM DEVRIES ROOM: [facility]3 Age: 61 Sex: M Admission Date: 08/28/2016 : 1955 Attending Physician: Marina Aguero M.D. Primary Care Physician: Prashanth Black M.D. Consultation Date: 08/28/2016 CONSULTATION REPORT REASON FOR CONSULT Congestive heart failure. HISTORY OF PRESENT ILLNESS This is a 61-year-old male who presented to the emergency room on 08/27 with complaints of shortness of breath. Apparently this has been occurring for about a day. On arrival to the emergency room, the patient was found to be profoundly anemic with a hemoglobin of 5.8, hematocrit of 19.2. On examination, he had a heme positive stool. In the emergency room, he was bolused with IV fluids and a CTA was performed. This was negative for a pulmonary embolus but did show pleural effusion. The patient did receive some packed red blood cells as well as a dose of vitamin K and Lasix IV. At some point during his stay in the emergency room, the patient developed increasing shortness of breath, dropped his saturations, and became bradycardic. There was some question of transient loss of pulse and he was given a round of CPR and epinephrine x1 dose. At the time of evaluation, the patient is in ICU 22. He is currently intubated and sedated on the ventilator. Thus far, he has received two units of packed red blood cells, two units of FFP, and is also getting IV diuresis. There is currently no family present at bedside to gather any information from regarding whether the patient had any chest pain prior to his admission. Initial EKG performed in the emergency room shows some slight elevation of his inferior leads. Repeat EKG this morning shows normal sinus rhythm, 85 beats per minute, some nonspecific ST abnormality. Point of care troponins have been indeterminate at 0.11 and 0.10. Chest x-ray is consistent with congestive heart failure. The patient is status post recent removal of failed hardware and distal femoral replacement with revision of the total knee on 07/25/2016. He was discharged on 07/29/2016 on anticoagulation with Coumadin for DVT prophylaxis. The patient has a known history of coronary artery disease with cardiac catheterization in September [address] Brown. At that time, the patient was found to have three vessel coronary artery disease, 75% stenosis proximal to mid LAD, 80% stenosis secondary marginal branch of the circumflex and 99% stenosis proximal RCA, 75% stenosis mid right coronary artery, 99% stenosis PLV branch of the right coronary artery. Overall, the patient had successful angioplasty of the proximal right coronary artery, 99% stenosis reduced to no residual stenosis with a 3.5 x 24 mm Synergy stent. 60% to 70% stenosis of the mid right coronary artery was not dilated. 99% stenosis of the PLV branch of the RCA was reduced to 20% residual stenosis with a Noncompliant balloon. Unsuccessful attempt to dilate the mid RCA and unsuccessful attempt in deploying the stent in the PLV branch of the RCA. At that time, if the patient continued to have Unit #: [id number] #: [id number] Patient: ANJUM DEVRIES WAY chest discomfort, he should be evaluated for possible coronary artery bypass graft, per Dr. Brown's note. At present is in ICU 22. He is in a sinus rhythm. Blood pressure is borderline low but stable. PAST MEDICAL HISTORY 1. Coronary artery disease, status post cardiac catheterization 09/23/2015. Found to have three vessel coronary artery disease. Final impression was: Successful angioplasty of the proximal RCA, 99% stenosis reduced to no residual stenosis with 3.5 x 24 mm Synergy stent, 60% to 70% stenosis mid coronary artery, not dilated, 99% stenosis posterior left ventricular branch of the right coronary artery reduced to 20% residual stenosis with a Noncompliant balloon. Unsuccessful attempt to dilate the mid right coronary artery and unsuccessful attempt to deploying the stent in the posterior left ventricular branch of the right coronary artery. It was determined at that time the patient, should he have continued chest pain, he should be considered to be evaluated for possible coronary artery bypass graft. He was placed on medical management. 2D echocardiogram from 06/22/2016, showed LVEF of 50% to 55%, mild concentric LVH, moderate septal hypokinesis, mild MR. No evidence of any pericardial effusion. 2. Hypertension. 3. Hyperlipidemia. 4. Diabetes mellitus. 5. Depression. 6. Obesity. 7. Peripheral neuropathy. 8. Previous CVA with some mild right-sided weakness and balance issues. 9. GERD. 10. Chronic low back pain. 11. Reformed tobacco abuse. Apparently quit in September. PAST SURGICAL HISTORY 1. Right knee replacement x2. 2. Recent, 07/24/2016, revision of total knee on the right with the distal femoral replacement prosthesis per Dr. Clemons. 3. Right hip arthroplasty. 4. Left foot fracture and repair. 5. Gastric bypass surgery. ALLERGIES No known drug allergies. HOME MEDICATIONS 1. Aspirin 81 mg p.o. daily. 2. Lipitor 40 mg p.o. q. h.s. 3. Carvedilol 12.5 mg q. a.m. 4. Carvedilol 6.25 mg q. p.m. 5. Celexa 20 mg p.o. daily. 6. Plavix 75 mg p.o. daily. 7. Januvia 100 mg p.o. q. a.m. 8. Levemir 50 units subcu twice daily. 9. Prinivil 5 mg p.o. daily. 10. Metformin 1500 mg p.o. b.i.d. 11. Humalog 10 units subcu three times a day before meals. 12. Percocet 10/325, one tab p.o. q.4-6 hours p.r.n. Unit #: [id number] #: [id number] Patient: ANJUM DEVRIES 13. Coumadin 2.5 mg p.o. daily. FAMILY HISTORY Negative for coronary artery disease per previous record. SOCIAL HISTORY The patient is . No one currently available at bedside. According to the prior chart, he quit smoking in September. No history of alcohol or drug use. REVIEW OF SYSTEMS Unable to be obtained secondary to patient is intubated and sedated on the ventilator. PHYSICAL EXAMINATION GENERAL: This is a 61-year-old male who is currently intubated and sedated on the ventilator. Skin is pale. VITAL SIGNS: Temperature 98.0, respiratory rate 22 on the ventilator, pulse is 70s to 80s, blood pressure currently 102/61. BMI of 33. HEENT: Pupils are equal and round. Head is atraumatic, normocephalic. Pharynx - patient is orally intubated. NECK: Trachea is midline. No lymphadenopathy or thyromegaly. Positive JVD. No carotic bruits. CHEST: Clear to auscultation. Fine crackles in the bases. ABDOMEN: Large, obese pannus. Soft, nontender, nondistended. NG-tube is in place. HEART: S1, S2. No murmur, gallop or rub. EXTREMITIES: Pulses are palpable. No clubbing, cyanosis. Trace edema is noted. SKIN: Extremely pale. No jaundice or icterus is noted. No wounds noted. NEUROLOGIC: The patient is sedated, on the ventilator. However, he is able to follow simple commands, bilateral hand grasps and moves lower extremities spontaneously. DIAGNOSTIC STUDIES LABORATORY: Initial point of care troponin was 0.11, repeat 0.10. This morning is 0.36. Sodium 136, potassium 4.2, chloride 103, CO2 25, BUN 20, creatinine 1.1, glucose is 256. BNP is 388. He currently has blood cultures which are pending. INR initially was 2.3, PT is 19.7 with an INR of 1.8. Hemoglobin on arrival was 5.8, repeat hemoglobin this morning is 6.4 with hematocrit of 20.5, WBC 12.5, platelet count of 213. The patient's MCV is 81.9. IMAGING: Chest x-ray shows diffuse bilateral infiltrates which are present. CTA of the chest shows small, left greater than right, effusions but no evidence of pulmonary embolus. CARDIOVASCULAR: Initial EKG shows sinus tachycardia, rate of 122 beats per minute, nonspecific ST abnormality. The patient did have some slight elevation in the inferior leads. Repeat EKG today shows normal sinus rhythm, ST-T wave abnormality. No acute ischemic changes noted. QTC interval of 476 msec. Unit #: [id number] #: [id number] Patient: ANJUM DEVRIES IMPRESSION 1. Acute respiratory failure secondary to acute ischemic cardiac event. 2. Known three vessel coronary artery disease, post percutaneous coronary intervention and stent to the right coronary artery. Left ventricular ejection fraction of 50% to 55% per last echo in June 2016. 3. Blood loss anemia, admitting hemoglobin of 5.8 with a heme positive stool on exam in the emergency room. 4. Recent leg surgery 07/24, discharged on anticoagulation with Coumadin. 5. Probable non-ST elevation myocardial infarction. 6. Diabetes mellitus. 7. Hyperlipidemia. 8. Reformed tobacco abuse. PLAN 1. The patient has been seen and evaluated. He appears to be in congestive heart failure, has elevated JVD, BNP of 388 and bilateral infiltrates present on chest x-ray. The patient is believed to be in acute respiratory failure secondary to acute cardiac event. His troponins are currently indeterminate with initial point of care 0.11, repeat this morning at 0.36. The patient has known three vessel coronary artery disease. He currently also has acute blood loss anemia. He has been on anticoagulation with Coumadin secondary to his recent leg surgery. He is currently being transfused with packed red blood cells. At present, his blood pressure is borderline low but stable. He remains in sinus rhythm on telemetry. We will plan to continue blood transfusions and ask GI to see secondary to his acute probable GI blood loss. 2. Most likely will need EGD and colonoscopy to rule out source of bleed. 3. Will continue with diuresis. He is currently getting IV Bumex 2 mg q.8 hours. Will plan to extubate when the patient is euvolemic. Again, he does have known coronary artery disease. Will need to consider repeat cardiac catheterization to re-evaluate coronary anatomy as PCI in 2016 did not achieve ideal results. The patient may need CABG for complete revascularization when his condition stabilizes. 4. For now, will hold any anticoagulation even though the patient most likely had an acute non-ST elevation myocardial infarction secondary to his acute blood loss anemia. Will consider re-initiation of anticoagulation once GI workup and hemoglobin has been stable if deemed necessary. Await GI input. At present. All anticoagulation is on hold. He will be continued on low dose beta beatrice therapy, nitrates and IV diuresis with Bumex. Will recheck fasting lipid panel and resume statin therapy. He will have CBC with diff in the a.m. Also, repeat cardiac enzymes and EKG as well as a chest x-ray in the a.m. Dictated by... Janis Whitfield A.P.R.N. for Vito Brown M.D. LMW/df TD: 08/29/2016 12:11 Unit #: [id number] #: [id number] Patient: ANJUM DEVRIES JOB #: [id number] CONSULTATION REPORT Page 1 of 1 X Janis Whitfield APRN CONSULTATION REPORT
--- NOTE | ~2016-08-27 | CR72 ---
[facility] A Service of [facility] & [facility] RADIOLOGY TEXT RESULTS PATIENT: ANJUM DEVRIES LOCATION: [address] : [birth year] UNIT #: [id number] AGE: [address]: Marina Aguero MD SEX: M ORDER DR: [id number] [facility] [address] [facility] [place], [place] [address] [id number] I MR#: [id number] #: [id number] NAME: ANJUM DEVRIES : 1955 SEX: M STUDY DATE/TIME: 08/28/2016 6:21 UNIT: [facility] ROOM: [facility] STUDY DESCRIPTION: CR Chest Single View Portable Attending Physician: Marina Aguero M.D. Ordering Physician: Abby Askew M.D. Primary Care Physician: Prashanth Black M.D. MEDICAL IMAGING REPORT This report is preliminary unless electronic signature is present EXAM Portable chest, 1 view, at 06:21. COMPARISON 08/27/2016 HISTORY Respiratory failure for 2 days. FINDINGS ETT remains, tip 4-5 cm above the vinayak. Diffuse interstitial prominence and elevated right hemidiaphragm redemonstrated. Slight improvement in aeration in lungs overall since 08/27/2016. No pneumothorax, no new abnormality. Dictated by... Juan R Hobbs M.D. THIS IS AN ELECTRONICALLY VERIFIED REPORT Juan R Hobbs M.D. at 08/28/2016 3:52 PM MAIK/gayr TD: 08/28/2016 15:34 JOB #: [id number] MEDICAL IMAGING REPORT Page 1 of 1 COPY
--- NOTE | ~2016-08-27 | HP ---
Unit #: [id number] #: [id number] Patient: ANJUM DEVRIES [id number] [address] [place], [place] [address] [id number] I MR#: [id number] NAME: ANJUM DEVRIES ROOM: [facility] Age: 61 Sex: M Admission Date: 08/27/2016 : 1955 Attending Physician: Abby Askew M.D. Primary Care Physician: Prashanth Black M.D. HISTORY AND PHYSICAL CHIEF COMPLAINT Acute respiratory failure, anemia, congestive heart failure. HISTORY This 61-year-old male with CAD and mild LV dysfunction, AODM, is admitted for shortness of breath. The patient underwent removal of failed hardware and distal femoral replacement with revision of total knee on 07/25/2016. He was discharged on Coumadin. Was in his usual state of health until two days ago when he began to experience dyspnea on exertion, and his noticed that he was dozing off. He was brought to this emergency department last evening where he was found to be profoundly anemic with a hemoglobin of 5.8 and hematocrit of 19.2, down from a hemoglobin of 8.5 a month ago. He had heme positive stool on exam. In the ER he was bolused with IV fluids and CTA was performed, which was negative for a PE but did show small pleural effusions. He was being transfused and at some point developed increasing shortness of breath, dropped his sats, became bradycardic. He may have transiently lost his pulse and was given epinephrine and a round of CPR. However, it is questionable whether he truly lost his pulse. At this time he is awake and alert on the ventilator. He appears to be quite pale and dyspneic. Orders are also written for vitamin K 40 mg of IV Lasix and some bicarb. Repeat chest x-ray is most consistent with congestive heart failure. PAST MEDICAL HISTORY 1. DJD. 2. CAD, status post ME with stent placement to the proximal RCA. Patient has a history of tachycardia and nonsustained ventricular tachycardia according to old records. Last echo per report showed an ejection fraction of 50% to 55% on 06/22/2016. 3. Hyperlipidemia. 4. AODM. 5. Depression. 6. Obesity. 7. Peripheral neuropathy. 8. Previous CVA with mild right-sided weakness and balance issues. 9. GERD. 10. Proteinuria. 11. Chronic low back pain. 12. Right knee replacement x2. 13. Right hip arthroplasty. 14. Pleural cavity biopsy. 15. Left foot fracture and repair. Unit #: [id number] #: [id number] Patient: ANJUM DEVRIES 16. Right femur fracture and repair. 17. Gastric bypass surgery. ALLERGIES No known drug allergies. HOME MEDICATIONS Coumadin 5 mg daily, the Coumadin was to be discontinued after yesterday; aspirin 81 mg daily; Lipitor 40 mg daily; Coreg 12.5 mg in the morning and 6.25 mg in the evening; Celexa 20 mg daily; Plavix 75 mg daily; Januvia 100 mg daily; Levemir 50 units subcu b.i.d.; lisinopril 5 mg daily; metformin 2 tablets every 12 hours 750 mg; oxycodone p.r.n. FAMILY HISTORY DJD, asthma, hyperlipidemia. SOCIAL HISTORY The patient lives with his . He stopped smoking in 2016 after a 20 years history of tobacco use. Does not drink alcohol. REVIEW OF SYSTEMS Impossible to obtain as patient currently is sedated on the ventilator. PHYSICAL EXAMINATION GENERAL: A very pale appearing, dyspneic, 61-year-old male who is awake and follows commands despite Diprivan drip. VITAL SIGNS: Temperature 98.7, initial heart rate 129 and currently is 118, respirations are 31, blood pressure was 148/93, current blood pressure is 114/59. HEENT: Eyes - PERRLA, extraocular muscles are intact. Pharynx - patient is orally intubated. NECK: Supple without adenopathy or thyromegaly. Elevated JVD noted. CHEST: With rhonchi. CARDIAC: Slightly tachy S1 and S2 without definite murmur. ABDOMEN: Bowel sounds are diminished and nontender. No hepatosplenomegaly or masses. EXTREMITIES: Healed right knee incision. Trivial edema noted bilaterally in the lower extremities. NEUROLOGIC: Patient is awake and alert. He follows commands. He has equal strength, is requiring wrist restraints. DIAGNOSTIC STUDIES LABORATORY STUDIES: Hematocrit is 19.2 down from 26.4 a month ago with a hemoglobin of 5.8, MCV 82.6, white blood count 12.6, normal platelet count. SMA 12 - glucose is 278, sodium 134, albumin 3.1, alk phos 128, BNP is 388. Initial troponin 0.11, second troponin 0.10. Initial ABG - pH 7.49, pCO2 30, pO2 74, O2 saturation 94.5% on 2 1/2 L. Second ABG - pH 7.16, pCO2 50.8, pO2 223 on tidal volume 500, PEEP of 5, AC 14, FIO2 100%. Of note, INR is currently 2.3. IMAGING STUDIES: Chest x-ray atelectasis versus infiltrate. CTA negative, although somewhat limited study. Small pleural effusions and atelectasis. Repeat chest x-ray on my review looks like congestive heart failure, although the radiologist reads this as atelectasis versus bilateral infiltrates. Unit #: [id number] #: [id number] Patient: ANJUM DEVRIES CARDIOLOGY STUDIES: Initial EKG - sinus tachycardia, rate 120, nonspecific ST wave abnormalities. Repeat EKG - sinus tachycardia rate [address] wave mild abnormalities noted inferiorly. ASSESSMENT 1. Acute hypoxic, hypercapnic respiratory failure likely related to congestive heart failure, precipitated by anemia. 2. Worsening anemia on anticoagulation with heme positive stool. 3. CAD, status post PCI and stent to the RCA with history of tachycardia and nonsustained ventricular tachycardia, ejection fraction 50% to 55%. 4. AODM with peripheral neuropathy. 5. Recent right leg surgery 07/25/2016. PLANS 1. Transfuse and give IV Lasix. 2. I's and O's and daily weights. 3. Serial cardiac enzymes and EKG. 4. Consult cardiology. 5. Proton pump inhibitor and hold anticoagulation. 6. Obtain serial H and H's and consider GI consultation when stabilized. Coumadin currently is being reversed. 7. Levemir and sliding scale insulin. 8. Pulmonary consultation has been obtained through the ER. 9. Continue low dose Coreg. 10. Sedation. Critical care time spent evaluating this patient was 40 minutes. Dictated by Deann Shetty/tayler TD: 08/28/2016 05:38 JOB #: [id number] HISTORY AND PHYSICAL Page 1 of 1 X Abby Askew MD X HISTORY AND PHYSICAL
--- NOTE | ~2016-08-27 | EKG ---
PATIENT: ANJUM DEVRIES UNIT #: [id number] Ventricular Rate: 85 BPM Atrial Rate: 85 BPM P-R Interval: 160 ms QRS Duration: 90 ms Q-T Interval: 400 ms QTC Calculation(Bezet): 476 ms P [place]idian: 50 degrees Calculated R Meridian: 25 degrees Calculated T Meridian: 76 degrees Diagnosis Line: Normal sinus rhythm Diagnosis Line: ST abnormality, possible digitalis effect T wave Diagnosis Line: abnormality, consider anterolateral ischemia Diagnosis Line: Abnormal ECG Diagnosis Line: No previous ECGs available Diagnosis Line: Confirmed by TIM CHICAS MD ([id number]) on 08/29/2016 Diagnosis Line: 7:06:42 PM INTERPRETING MD: JUAN FRANCISCO MALAVE
--- NOTE | ~2016-08-27 | CR72 ---
[facility] A Service of [facility] RADIOLOGY TEXT RESULTS PATIENT: ANJUM DEVRIES LOCATION: [address]- : [birth year] UNIT #: [id number] AGE: [address]: Abby Askew MD SEX: M ORDER DR: [id number] [facility] [address] [facility]. [place], [place] [address] [id number] I MR#: [id number] #: [id number] NAME: ANJUM DEVRIES : 1955 SEX: M STUDY DATE/TIME: 08/27/2016 23:42 UNIT: [facility] ROOM: [facility] STUDY DESCRIPTION: CR Chest Single View Portable Attending Physician: Abby Askew M.D. Ordering Physician: Bill Hardy M.D. Primary Care Physician: Prashanth Black M.D. MEDICAL IMAGING REPORT This report is preliminary unless electronic signature is present EXAM Portable chest. INDICATION Respiratory failure, shortness of air, patient was coded, endotracheal tube was placed. Evaluate placement. FINDINGS This portable view of the chest is compared with earlier the same day. Endotracheal tube has been added and the tip is 4 cm above the vinayak. Diffuse bilateral infiltrates are stable and the heart size is normal. Dictated by... Tim Davis M.D. THIS IS AN ELECTRONICALLY VERIFIED REPORT Tim Davis M.D. at 08/28/2016 5:54 AM VINH/max TD: 08/28/2016 03:26 JOB #: [id number] MEDICAL IMAGING REPORT Page 1 of 1 COPY
--- NOTE | ~2016-08-27 | A ---
[facility] Nutrition Therapy DATE: 08/28/16 Patient: ANJUM DEVRIES Physician: BRIANA Address: [address] [place] [address] Room/Bed: [address], Zip: [place] [address] Admit Date: 08/27/16 Date of : [birth year] Height: 5 9 Weight: 227 103 NUTRITIONAL ASSESSMENT: REASON: NPO in ICU 61 yo male admitted for SOA, low Hgb, possible GI bleed PMH: DM, GERD, HTN, HLD, dyslipidemia, obesity, DJD, OA, CVA, CAD, acute respiratory failure, right hip arthroplasty, gastric bypass, proteinuria Anthropometrics: Ht: 5'10" Wt: 103 kg BMI: 32.6 IBW: 75.4 kg Labs: Gluc 256 Ca++ 8.1 Accuchecks 182-354 Meds: Propofol @ 30.4 mL/hr, fentanyl, bumex, novolog, protonix, D5%, NaCl I/O & Bowel function: 635/1525, last BM unknown, OGT to LWS Skin Integrity: Multiple scars to right leg Edema: Pedal/ ankle 2+ Generalized- right knee Estimated Nutrition Needs: 5267-9980 kcals (15-20 kcals/kg ABW) 113-151 grams protein (1.5-2.0 grams/kg IBW) Assessment: Chart reviewed, events noted. 61 yo male admitted for acute respiratory failure, which is likely d/t CHF per MD note. Pt is intubated and sedated in the ICU. Propofol is providing an additional 802 kcals from lipids at this time. Pt has a questionable GI bleed, and may be going for EGD tomorrow per CHEESE SUPERVISOR report. Pt is receiving blood d/t low Hgb. Please see recommendations below. Dx: Inadequate protein-energy intake RT clinical condition AEB no diet order, intubated. Intervention: 1. Enteral nutrition once medically feasible Monitoring, Evaluation and Goals: 1. Enteral nutrition; provide >80% goal volume once medically feasible 2. Labs; WNL: glucose 3. Weight; preserve lean body mass 4. GI; promote regular GI function [facility] Nutrition Therapy DATE: 08/28/16 Patient: ANJUM DEVRIES Physician: BRIANA Address: [address] [place] [address] Room/Bed: [address], Zip: [facility] [address] Admit Date: 08/27/16 Date of : [birth year] Height: 5 9 Weight: 227 103 Recommendations: 1. Once medically feasible, recommend initiating enteral nutrition with Glucerna 1.5 @ 15 mL/hr. Increase by 10 mL q 6 hrs as tolerated to indicated goal below: WHILE THE PT REMAINS ON PROPOFOL @ 30.4 ML/HR: -Increase Glucerna 1.5 to 25 mL/hr + 60 mL (two packets) Prostat BID (Total of four packets daily) to provide: 2102 kcals/ 110 grams protein/ 455 mL free H20 WHEN THE PT IS NO LONGER RECEIVING PROPOFOL: -Increase Glucerna 1.5 to 45 mL/hr + 30 mL (one packet) Prostat BID (total of two packets) to provide: 1820 kcals/ 119 grams protein/ 820 mL free H20 2. If the pt is extubated, recommend CALL CENTER COORDINATOR evaluation to determine if the pt can safely tolerate PO intake. Advance diet per CALL CENTER COORDINATOR recommendations + heart healthy/ consistent carbohydrate restrictions. Pt is at moderate-severe nutritional risk. RD will follow hospital course per protocol. Respectfully, JESSY NICHOLS RD, LD Food and Nutritional Services [facility] cc: client file
--- NOTE | ~2016-08-27 | OR ---
Unit #: [id number] #: [id number] Patient: ANJUM DEVRIES [id number] [address] [place], [place] [address] [id number] I MR#: [id number] NAME: ANJUM DEVRIES ROOM: [facility] Date of Procedure: 08/29/2016 Admission Date: 08/28/2016 Surgeon: Benson Renae M.D. : 1955 Attending Physician: Marina Aguero M.D. Primary Care Physician: Prashanth Black M.D. OPERATIVE REPORT PRIMARY CARE PHYSICIAN Prashanth Black M.D. PREOPERATIVE DIAGNOSIS Possible gastrointestinal bleed. PROCEDURE PERFORMED Upper gastrointestinal endoscopy up to duodenum. POSTOPERATIVE DIAGNOSES Completely normal examination except for presence of some suction artifacts in the distal stomach. The examination was otherwise normal. RECOMMENDATIONS The patient can be started on tube feeds and continue on PPI prophylaxis. There is no potential source of blood loss in the upper gastrointestinal tract. SEDATION USED 2 mg of versed was used throughout the procedure. DESCRIPTION OF PROCEDURE Following detailed explanation of the potential risks and complications of an upper endoscopy, namely perforation, bleeding, and complication related to sedation, the procedure was done in intensive care unit at the patient's bedside. The patient was lying in supine position with head of the bed elevated. He was on the ventilator when the procedure was performed. A bite block was placed. Lubricated tip of the Olympus video upper endoscope was passed through the bite block into the proximal esophagus under direct vision. The entire esophageal mucosa was examined and appeared normal. Z-line was nicely demarcated, there being no esophagitis or hiatus hernia. The scope was then advanced into the gastric cavity and the latter was insufflated. Mucosa of the fundus, body, and antrum was examined. The patient was noted to have prepyloric antral erosions indicating these are from suction artifacts from the NG suction. Pylorus was intubated with visualization of the normal duodenal bulb and second and third part of the duodenum. Upon withdrawal and retroflexion, incisura, cardia, and greater curve was examined and no additional findings were noted. The scope was then withdrawn in the distal esophagus. Entire esophageal mucosa was examined all the way up to pharynx. No additional findings were noted. The patient tolerated the procedure without any postprocedure complications. Unit #: [id number] #: [id number] Patient: ANJUM DEVRIES Dictated by..Deann Raya/amairani TD: 08/29/2016 22:22 JOB #: [id number] Abby Askew M.D. OPERATIVE REPORT Page 1 of 1 X Benson Renae MD X PROCEDURE OPERATIVE NOTE
--- NOTE | ~2016-08-27 | CR72 ---
[facility] A Service of [facility] RADIOLOGY TEXT RESULTS PATIENT: ANJUM DEVRIES LOCATION: [address] : [birth year] UNIT #: [id number] AGE: [address]: Marina Aguero MD SEX: M ORDER DR: [id number] [facility] [address] [facility]. [place], [place] [address] [id number] I MR#: [id number] #: [id number] NAME: ANJUM DEVRIES : 1955 SEX: M STUDY DATE/TIME: 08/29/2016 4:45 UNIT: [facility] ROOM: [facility] STUDY DESCRIPTION: CR Chest Single View Portable Attending Physician: Marina Aguero M.D. Ordering Physician: Vito Brown M.D. Primary Care Physician: Prashanth Black M.D. MEDICAL IMAGING REPORT This report is preliminary unless electronic signature is present EXAM Portable chest INDICATION Respiratory failure. Shortness of air. Symptoms for 3 days. Follow up endotracheal tube. FINDINGS This portable view of the chest is compared with yesterday's study. There are bilateral lower lobe infiltrates that are slightly worse than on yesterday's study. The endotracheal tube is in good position. IMPRESSION 1. Increase in bilateral lower lobe infiltrates. 2. Stable endotracheal tube. Dictated by... Tim Davis M.D. THIS IS AN ELECTRONICALLY VERIFIED REPORT Tim Davis M.D. at 08/29/2016 2:21 PM VINH/mila TD: 08/29/2016 07:01 JOB #: [id number] MEDICAL IMAGING REPORT Page 1 of 1 COPY
--- NOTE | ~2016-08-27 | EKG ---
PATIENT: ANJUM DEVRIES UNIT #: [id number] Ventricular Rate: 121 BPM Atrial Rate: 121 BPM P-R Interval: 144 ms QRS Duration: 88 ms Q-T Interval: 328 ms QTC Calculation(Bezet): 465 ms P Hansen: 60 degrees Calculated R Hansen: 65 degrees Calculated T Hansen: 65 degrees Diagnosis Line: Sinus tachycardia Diagnosis Line: Nonspecific ST abnormality Diagnosis Line: Abnormal ECG Diagnosis Line: When compared with ECG of 28-AUG-2016 00:40, Diagnosis Line: (unconfirmed) Diagnosis Line: No significant change was found Diagnosis Line: Confirmed by TIM CHICAS MD ([id number]) on 08/29/2016 Diagnosis Line: 7:02:54 PM INTERPRETING MD: JUAN FRANCISCO MALAVE
--- NOTE | ~2016-08-27 | FU ---
[facility] Nutrition Therapy DATE: 08/31/16 Patient: ANJUM ONEIL KAYCE Physician: BRIANA Address: [address] [place] [address] Room/Bed: [address] [place] [address], Zip: [place] [address] Admit Date: 08/28/16 Date of : [birth year] Height: 5 9 Weight: 216 98 NUTRITION MONITORING/FOLLOW-UP: Reason: Nutrition follow-up Admitting Dx: 61 y/o male admitted with SOA, CHF, ?GIB Anthropometrics: Ht: 70", admission wt: 103 kg, current wt: 98 kg, BMI: 32.6 (based on admission wt; Stage I obese) Labs: 08/30 labs: Glucose 189, Mg 1.5, glucose POC 183 (08/31), Triglycerides 176 (08/28), A1C 11.1 (07/04/16) Meds: PPI, Novolog (high SSI), Bumex, Mag-ox, Kcl, Nacl, MgSO4, NSIV @ 60 ml/hr GI: LBM 08/30 Skin: No change, generalized-2+ edema noted Assessment: Chart reviewed, events noted. Patient extubated 08/30, now on 4L nasal cannula, c/o tiredness. Moved out of ICU yesterday and is now on consistent carb diet, which he is tolerating. Had upper GI scope 08/29 which was normal. See nutritional goals, dx and recs below. Of note, the patient was never started on EN. Will continue to follow. Dx: Inadequate protein energy intake r/t clinical condition AEB no diet order, intubated - RESOLVED New nutrition dx: Obesity r/t PMH, diet, lifestyle AEB BMI 32.6. Intervention: Replace lytes prn, optimize insulin regimen Monitoring, Evaluation and Goals: 1. EN to provide > 80% goal volume x 24 hours - NO LONGER RELEVANT 2. Glucose WNL - IN PROGRESS 3. Maintain lean body mass - NO LONGER RELEVANT 4. GI function WNL - MET New goals: 1. PO intake 50-100% of meals. 2. Gradual weight loss towards a healthy BMI range. 3. Improvement in labs (glucose, lytes). Monitor: Per protocol, criteria to determine if above goals met [facility] Nutrition Therapy DATE: 08/31/16 Patient: ANJUM DEVRIES Physician: BRIANA Address: [address] [place] [address] Room/Bed: [address] [place] [address], Zip: [place] [address] Admit Date: 08/28/16 Date of : 57 Height: 5 9 Weight: 216 98 Recommendations: 1. Continue current diet, consider adding healthy heart restriction due to PMH and elevated triglycerides to promote a gradual weight loss towards a healthy BMI range. 2. Replace lytes prn. 3. Optimize insulin regimen to promote adequate blood glucose control. 4. Patient may benefit from weight loss education prior to discharge- consult RD if desired. Status: Mild-moderate nutrition risk Respectfully, Allison Stroud RD, LD Food and Nutritional Services [facility] cc: client file
--- NOTE | ~2016-08-27 | EKG ---
PATIENT: ANJUM DEVRIES UNIT #: [id number] Ventricular Rate: 124 BPM Atrial Rate: 124 BPM P-R Interval: 136 ms QRS Duration: 92 ms Q-T Interval: 316 ms QTC Calculation(Bezet): 453 ms Calculated R [place]: 48 degrees Calculated T [place]: 70 degrees Diagnosis Line: Sinus tachycardia Diagnosis Line: Nonspecific ST and T wave abnormality consider Diagnosis Line: inferior subepicaridal injury Diagnosis Line: Abnormal ECG Diagnosis Line: When compared with ECG of 27-AUG-2016 21:19, Diagnosis Line: (unconfirmed) Diagnosis Line: ST elevation now present in Inferior leads Diagnosis Line: Confirmed by SIMI CHESTER MD ([id number]) on Diagnosis Line: 08/29/2016 5:42:30 AM INTERPRETING MD: FABIOLA
--- NOTE | ~2016-08-27 | DS ---
Unit #: [id number] #: [id number] Patient: ANJUM DEVRIES [id number] [address] [place], [place] [address] [id number] I MR#: [id number] NAME: ANJUM DEVRIES ROOM: 337 Age: 61 Sex: M Admission Date: 08/28/2016 : 1955 Discharge Date: 09/01/2016 Attending Physician: Marina Aguero M.D. Primary Care Physician: Prashanth Black M.D. DISCHARGE SUMMARY REASON FOR ADMISSION Acute respiratory failure, anemia, heart failure. HISTORY OF PRESENT ILLNESS/HOSPITAL COURSE The patient is a very pleasant 61-year-old male with underlying history of coronary artery disease, LV dysfunction, and diabetes, who was admitted secondary to shortness of breath. He had recently undergone removal of failed hardware and distal femoral replacement with revision of total knee on July 25, 2016. At that point in time, he was discharged on Coumadin. He was in his usual state of health until approximately 48 hours prior to admission when he began having acute dyspnea on exertion. He was brought to the emergency department and found to have anemia with a hemoglobin of 5.8 and hematocrit 19.2 from usual baseline close to 8.5. He had positive Hemoccult stool. He was bolused with IV fluids. A CTA was performed that was negative for PE. It showed small pleural effusions. He was subsequently admitted for further evaluation. There was a questionable transient loss of his pulse in the emergency room. He was given epinephrine and a round of CPR. Again, it was questionable if he truly lost his pulse. He was subsequently placed in the ICU, and consultations were placed to GI services, Dr. Renae, as well as cylinder press feeder, Dr. Peters, and Dr. Brown of cardiology services. Through hospital course, the patient underwent upper GI endoscopy which did not show any acute process. Dr. Renae recommended observation afterwards to which his hemoglobin remained stable. He also recommended outpatient colonoscopy to be performed and/or scheduled over the next several weeks not only for routine screening but to ascertain a possible etiology for underlying anemia. From a cardiac standpoint, patient was ultimately cleared. He did undergo a 2D echocardiogram which showed an ejection fraction of 35% to 40%. There was mild to moderate tricuspid regurgitation which was noted. He was diuresed and restarted on his beta blockers, and he did show improvement. He was transitioned to telemetry floor from ICU. Pulmonary services continued to follow. He was treated presumptively as aspiration pneumonia with IV Zosyn which was later discontinued and changed to p.o. Augmentin. He is currently on baseline O2 which has since been weaned and will continue to be weaned at time of discharge. Unit #: [id number] #: [id number] Patient: ANJUM DEVRIES At this point in time, he is medically stable for discharge. Through hospital course, his peak troponin level was 0.36 consistent with an non-ST segment elevation myocardial infarction, and after review and discussion with Dr. Brown who had seen the patient in the past, medical management was recommended at the present time with close outpatient followup. He is scheduled with Dr. Joseph on December 04 at 11:45 a.m. At that point in time, consideration may be given for cardiac catheterization to be done as an outpatient. He does have a prior history of three-vessel coronary artery disease, status post stent placement to the RCA. FOLLOWUP 1. He should follow up with his PCP, Dr. Monie Galaviz, in approximately seven to 10 days for a repeat CBC and BMP. 2. He should follow up with Dr. Joseph on December 04 at 11:45 a.m. 3. He should follow up with Dr. Renae of gastroenterology services as an outpatient over the next three to four weeks for consideration for outpatient colonoscopy. FINAL DISCHARGE DIAGNOSES 1. Acute hypoxic respiratory failure, now resolved. 2. Pulmonary edema, now resolved. 3. Systolic heart failure with ejection fraction of 35% to 40%. 4. Severe three-vessel coronary artery disease, status post stent placement to right coronary artery in the past. 5. Acute blood loss anemia secondary to Coumadin. 6. Normal EGD/upper gastrointestinal endoscopy. 7. Non-ST segment elevation myocardial infarction with peak troponin 0.36. 8. Hypertension. 9. Hyperlipidemia. 10. Diabetes. 11. Obesity. 12. Immobility syndrome. FINAL DISCHARGE MEDICATIONS 1. Flomax 0.4 mg p.o. at bedtime. 2. Tylenol 650 mg p.o. q.6 p.r.n. 3. Coreg 12.5 mg p.o. b.i.d. 4. Bumex 2 mg p.o. b.i.d. 5. Lipitor 40 mg p.o. at bedtime. 6. Lisinopril 5 mg p.o. at bedtime. 7. Aspirin 81 mg p.o. daily. 8. Aldactone 12.5 mg p.o. daily. 9. Protonix 40 mg p.o. daily. 10. Augmentin 875 mg p.o. b.i.d. x7 days. DISCHARGE CONDITION Stable. DISCHARGE DISPOSITION Home. [facility] services to follow at time of discharge. Dictated by... Marina Aguero M.D. Unit #: [id number] #: [id number] Patient: ANJUM DEVRIES ISDilcia/guicho TD: 09/02/2016 18:42 JOB #: [id number] DISCHARGE SUMMARY Page 1 of 1 X Marina Aguero MD X DISCHARGE SUMMARY
--- NOTE | ~2016-08-27 | CR72 ---
[facility] A Service of [facility] RADIOLOGY TEXT RESULTS PATIENT: ANJUM DEVRIES LOCATION: [facility]08-01 : [birth year] UNIT #: [id number] AGE: [address]: Marina Aguero MD SEX: M ORDER DR: [id number] [facility] [address] [place], [place] [address] [id number] I MR#: [id number] Acc #: [id number] NAME: ANJUM DEVRIES : 1955 SEX: M STUDY DATE/TIME: 08/27/2016 20:59 UNIT: CEDOF ROOM: 40257 STUDY DESCRIPTION: CR Chest Single View Portable Attending Physician: Abby Askew M.D. Ordering Physician: Bill Hardy M.D. Primary Care Physician: Prashanth Black M.D. MEDICAL IMAGING REPORT This report is preliminary unless electronic signature is present EXAM frontal chest 08/27/2016 INDICATIONS 61-year-old male with shortness of air that began yesterday, along with weakness. TECHNIQUE Frontal chest was performed. COMPARISON STUDIES 07/04/2016. FINDINGS Cardiac silhouette is borderline in size. The vascularity is within normal limits. Interval development of faint bibasilar atelectasis or infiltrates, right greater than left. No pneumothorax or effusion. There is old healed granulomatous disease. IMPRESSION 1. Interval development of bibasilar atelectasis or infiltrates, right greater than left. No pneumothorax or effusion. There is old healed granulomatous disease. Dictated by... Arsalan Cavazos M.D. THIS IS AN ELECTRONICALLY VERIFIED REPORT Arsalan Cavazos M.D. at 08/28/2016 2:52 PM JLYonny/pamela [facility] A Service [facility] RADIOLOGY TEXT RESULTS PATIENT: ANJUM DEVRIES LOCATION: [address]01 : [birth year] UNIT #: [id number] AGE: [address]: Marina Aguero MD SEX: M ORDER DR: TD: 08/28/2016 01:15 JOB #: [id number] MEDICAL IMAGING REPORT Page 1 of 1 COPY
--- NOTE | ~2016-08-27 | CO ---
Unit #: [id number] #: [id number] Patient: ANJUM DEVRIES [id number] [address] [address] [id number] I MR#: [id number] NAME: ANJUM DEVRIES ROOM: [facility] Age: 61 Sex: M Admission Date: 08/27/2016 : 1955 Attending Physician: Abby Askew M.D. Primary Care Physician: Prashanth Black M.D. CONSULTATION REPORT REASON FOR CONSULTATION Respiratory failure. CHIEF COMPLAINT Shortness of breath. HISTORY OF PRESENT ILLNESS A 61-year-old male with past medical history of coronary artery disease, left ventricular dysfunction admitted with complaint of shortness of breath. He had recent leg surgery for removal of the hardware. He was brought to the emergency room, found to be profoundly anemic, 5.8. In the ER, he was given IV bolus. CT chest was performed. No pulmonary embolism. He was being transfused. He became increasingly short of breath and bradycardic and lost his pulse and CPR was performed. The patient was intubated. I am seeing him at the bedside, currently intubated, sedated. PAST MEDICAL HISTORY Degenerative joint disease, coronary artery disease, dyslipidemia, depression, obesity, peripheral neuropathy, gastroesophageal reflux disease, proteinuria, chronic low back pain, right knee replacement, right hip arthroplasty, pleural cavity biopsy, left foot fracture. SOCIAL HISTORY Ex-smoker. No alcohol. No drug abuse. FAMILY HISTORY Degenerative joint disease, asthma, dyslipidemia. ALLERGIES No known drug allergies. HOME MEDICATION As per MAR, has been reviewed. REVIEW OF SYSTEMS Unobtainable. Positive pallor. No edema. No cyanosis or jaundice. The rest are as per history of present illness. The rest of a 12-point review of systems has been reviewed and is negative. PHYSICAL EXAMINATION Unit #: [id number] #: [id number] Patient: ANJUM DEVRIES VITAL SIGNS: Temperature 98. Pulse 87. Respiration 12. Blood pressure 110/70. NEUROLOGIC: Sedated, intubated. PHYSICAL EXAMINATION VITAL SIGNS: Temperature 98. Pulse 87. Respiration 12. Blood pressure 110/70. NEUROLOGIC: Awake, alert, oriented. No neuro deficit. HEENT: PERRLA. NECK: Supple. No JVD. CHEST: Bilateral air entry. Bilateral mild rhonchi. GASTROINTESTINAL: Nontender. Soft. Bowel sounds positive. EXTREMITIES: No edema. SKIN: No rash. LYMPHATIC: No lymphadenopathy. DIAGNOSTIC STUDIES Labs and imaging have been reviewed. ASSESSMENT Acute hypoxic respiratory failure, severe anemia, coronary artery disease, hypertension, congestive heart failure with acute exacerbation, right leg surgery, obstructive sleep apnea. PLAN Continue IV diuresis. Continue bronchodilator. GI and DVT prophylaxis. Transfuse PRBC. FFP has been given. We will continue to monitor. Please see orders for detailed plan. We will start on empiric antibiotics as well. The patient will be closely monitored. Please see orders for detailed plan. Thank you very much for this consultation. Dictated by... Deann Land TD: 08/28/2016 07:41 JOB #: [id number] CONSULTATION REPORT Page 1 of 1 X Shanelle Peters MD X CONSULTATION REPORT
--- NOTE | ~2016-08-27 | EKG ---
PATIENT: ANJUM EDVRIES UNIT #: [id number] Ventricular Rate: 122 BPM Atrial Rate: 122 BPM P-R Interval: 148 ms QRS Duration: 92 ms Q-T Interval: 324 ms QTC Calculation(Bezet): 461 ms P Lamona: 86 degrees Calculated R Lamona: 71 degrees Calculated T Lamona: 55 degrees Diagnosis Line: Sinus tachycardia Diagnosis Line: Nonspecific ST abnormality Diagnosis Line: Abnormal ECG Diagnosis Line: When compared with ECG of 25-JUL-2016 07:27, Diagnosis Line: ST no longer elevated in Inferior leads Diagnosis Line: Confirmed by SIMI CHESTER MD ([id number]) on Diagnosis Line: 08/29/2016 5:40:17 AM INTERPRETING ELI HICKS
[2016-08-27 21:00] LABS: ARTERIAL BLD GAS O2 SATURATION 94.5 % (90.0-100.0); ARTERIAL BLOOD GAS CARBOXY HB 1.7 %sat (0.0-9.0); ARTERIAL BLOOD GAS HCO3 23.2 mmol/L; ARTERIAL BLOOD GAS MET HB 1.1 %sat (0.0-2.0); ARTERIAL BLOOD GAS PCO2 30.3 mmHg (35.0-45.0); ARTERIAL BLOOD GAS pH 7.493 (7.350-7.450)
[2016-08-27 21:01] LABS: ARTERIAL BLOOD GAS PO2 74.5 mmHg (80.0-100)
[2016-08-27 21:02] LABS: ARTERIAL BLOOD GAS ALLEN TEST NORMAL; ARTERIAL BLOOD GAS ART SITE RIGHT RADIAL; ARTERIAL BLOOD GAS DELIVERY NASAL CANNULA; ARTERIAL BLOOD GAS LITER FLOW 2.5; ARTERIAL DRAW? YES
[~2016-08-27 21:15] MED LIST changes: +CELEXA20 MG PO; +COREG12.5 MG PO; +COUMADIN2.5 MG PO; +HUMALOG100 U/ML SUBQ; +LOW DOSE ASPIRI81 M1 PO; +METFORMIN HCL750 MG PO; +PERCOCET 10/3251 TAB PO; +PRINIVIL5 MG PO
[2016-08-27 21:18] LABS: BASOPHIL# 0.1 X10e3 (0-0.3); BASOPHIL% 0.6 % (0-2.5); EOSINOPHIL# 0.1 X10e3 (0-0.7); EOSINOPHIL% 0.5 % (0.0-7.0); HEMATOCRIT 19.2 % (38.0-50.0); MEAN CELL VOLUME 82.6 FL (83-96); MEAN CORPUSCULAR HGB CONC 30.2 g/dL (30-36); MEAN PLATELET VOLUME 9.2 FL (6.5-11.5); MONOCYTE# 0.7 X10e3 (0-1.0); MONOCYTE% 5.5 % (3.0-12.0); NEUTROPHIL# 10.8 X10e3 (1.5-7.1); NEUTROPHIL% 85.4 % (40-75); PLATELET COUNT 252 X10e3 (140-420); RED BLOOD COUNT 2.33 X10e (3.90-5.60); RED CELL DISTRIBUTION WIDTH 17.5 % (11.0-15.5); WHITE BLOOD COUNT 12.6 X10e3 (4.0-10.5)
[2016-08-27 21:21] LABS: POC - CKMB 5.5 ng/mL (0.0-7.9); POC - TROPONIN 0.11 ng/mL (<=0.05)
[2016-08-27 21:24] LABS: HEMOGLOBIN 5.8 gm/dL (13.0-16.0)
[2016-08-27 21:25] LABS: DIFF IND YES
[2016-08-27 21:36] LABS: ALBUMIN SERUM 3.1 g/dL (3.5-5.0); BILIRUBIN, DIRECT 0.1 mg/dL (0.0-0.2); BILIRUBIN,INDIRECT 0.6 mg/dL (0.0-0.9); BILIRUBIN,TOTAL 0.7 mg/dL (0.2-2.0); CALCIUM SERUM 8.6 mg/dL (8.4-10.2); CREATININE SERUM 1.1 mg/dL (0.6-1.4); GLOM FILT RATE Estimated 72.6 mL/min (>60); POTASSIUM 4.7 mmol/L (3.5-5.1); PROTEIN TOTAL SERUM 7.2 g/dL (6.0-8.3)
[2016-08-27 21:51] LABS: INR 2.3; PARTIAL THROMBOPLASTIN TIME 37.2 SECONDS (23.5-31.3); PROTHROMBIN TIME (PATIENT) 24.8 SECONDS (9.6-11.5)
[2016-08-27 23:00] LABS: POC - CKMB 5.4 ng/mL (0.0-7.9); POC - TROPONIN 0.1 ng/mL (<=0.05)
[2016-08-27 23:33] LABS: PLATELET ESTIMATE NORMAL (NORMAL)
[2016-08-27 23:37] LABS: HYPOCHROMIA MOD; ROULEAUX SLIGHT
[2016-08-27 23:55] LABS: ARTERIAL BLD GAS O2 SATURATION 98.6 % (90.0-100.0); ARTERIAL BLOOD GAS HCO3 18.2 mmol/L; ARTERIAL BLOOD GAS MET HB 0.4 %sat (0.0-2.0)
[2016-08-27 23:58] LABS: ARTERIAL BLOOD GAS ALLEN TEST NORMAL; ARTERIAL BLOOD GAS ART SITE RIGHT RADIAL; ARTERIAL BLOOD GAS DELIVERY VENT; ARTERIAL BLOOD GAS PCO2 50.8 mmHg (35.0-45.0); ARTERIAL BLOOD GAS VENT MODE AC; ARTERIAL BLOOD GAS pH 7.163 (7.350-7.450); ARTERIAL DRAW? YES
[2016-08-28 01:16] LABS: URINE SOURCE CLEAN CATCH
[2016-08-28 01:23] LABS: ARTERIAL BLD GAS O2 SATURATION 97.3 % (90.0-100.0); ARTERIAL BLOOD GAS CARBOXY HB 1.1 %sat (0.0-9.0); ARTERIAL BLOOD GAS HCO3 23.9 mmol/L; ARTERIAL BLOOD GAS MET HB 1.5 %sat (0.0-2.0); ARTERIAL BLOOD GAS pH 7.396 (7.350-7.450)
[2016-08-28 01:24] LABS: ARTERIAL BLOOD GAS ALLEN TEST NORMAL; ARTERIAL BLOOD GAS ART SITE LEFT RADIAL; ARTERIAL BLOOD GAS DELIVERY VENT; ARTERIAL BLOOD GAS VENT MODE AC; ARTERIAL DRAW? YES
[2016-08-28 01:31] LABS: URINE APPEARANCE CLEAR; URINE BILIRUBIN NEG (NEG); URINE BLOOD 1+ (NEG); URINE COLOR YELLOW; URINE GLUCOSE 500 MG/DL (NEG); URINE KETONE NEG (NEG); URINE LEUKOCYTE ESTERASE NEG (NEG); URINE NITRATE NEG (NEG); URINE PROTEIN 1+ (NEG); URINE SPECIFIC GRAVITY 1.023 (1.003-1.035); URINE UROBILINOGEN 0.2 MG/DL (NEG)
[2016-08-28 01:34] LABS: URINE BACTERIA AUWI NEG (NEGATIVE); URINE SQUAMOUS EPITHELIAL CELL NONE SEEN /[HPF]; UWBCS1 AUWI 0-2 (0-5)
[2016-08-28 01:38] LABS: CULTURE INDICATED? NO
[2016-08-28 04:21] LABS: ARTERIAL BLOOD GAS ALLEN TEST NORMAL; ARTERIAL BLOOD GAS ART SITE LEFT RADIAL; ARTERIAL BLOOD GAS CARBOXY HB 1.4 %sat (0.0-9.0); ARTERIAL BLOOD GAS DELIVERY VENT; ARTERIAL BLOOD GAS HCO3 25.9 mmol/L; ARTERIAL BLOOD GAS MET HB 0.7 %sat (0.0-2.0); ARTERIAL BLOOD GAS PCO2 41.1 mmHg (35.0-45.0); ARTERIAL BLOOD GAS VENT MODE AC; ARTERIAL BLOOD GAS pH 7.409 (7.350-7.450); ARTERIAL DRAW? YES
[2016-08-28 05:53] LABS: BASOPHIL% 0.3 % (0-2.5); EOSINOPHIL% 0.1 % (0.0-7.0); HEMATOCRIT 20.5 % (38.0-50.0); LYMPHOCYTE# 1.2 X10e3 (1.0-3.5); LYMPHOCYTE% 9.4 % (17.0-45.0); MEAN CELL VOLUME 81.9 FL (83-96); MEAN CORPUSCULAR HEMOGLOBIN 25.5 PG (28-34); MEAN CORPUSCULAR HGB CONC 31.1 g/dL (30-36); MEAN PLATELET VOLUME 9.3 FL (6.5-11.5); MONOCYTE# 0.8 X10e3 (0-1.0); MONOCYTE% 6.8 % (3.0-12.0); NEUTROPHIL# 10.4 X10e3 (1.5-7.1); NEUTROPHIL% 83.4 % (40-75); PLATELET COUNT 213 X10e3 (140-420); WHITE BLOOD COUNT 12.5 X10e3 (4.0-10.5)
[2016-08-28 05:57] LABS: DIFF IND NO; HEMOGLOBIN 6.4 gm/dL (13.0-16.0)
[2016-08-28 06:22] LABS: INR 1.8; PARTIAL THROMBOPLASTIN TIME 32.7 SECONDS (23.5-31.3); PROTHROMBIN TIME (PATIENT) 19.7 SECONDS (9.6-11.5)
[2016-08-28 06:31] LABS: BUN/CREATININE RATIO 18.18; CALCIUM SERUM 8.1 mg/dL (8.4-10.2); CREATININE SERUM 1.1 mg/dL (0.6-1.4); GLOM FILT RATE Estimated 72.6 mL/min (>60); POTASSIUM 4.2 mmol/L (3.5-5.1)
[2016-08-28 07:00] LABS: %MB 1.2 % (0.0-4.0); MB 3.3 ng/ml
[2016-08-28 15:24] LABS: CHOLESTEROL 111 mg/dL (0-200); HDL CHOLESTEROL 29 mg/dL (29-75); LDL CHOLESTEROL 47 mg/dL ([, -130]); LDL/HDL RATIO 2 RATIO (0-4); TRIGLYCERIDES 176 mg/dL (10-160)
[2016-08-28 16:23] LABS: HEMATOCRIT 23.4 % (38.0-50.0); HEMOGLOBIN 7.5 gm/dL (13.0-16.0)
[2016-08-28 17:04] LABS: %MB 0.7 % (0.0-4.0); MB 2.4 ng/ml
[2016-08-28 20:20] LABS: HEMATOCRIT 28.7 % (38.0-50.0); HEMOGLOBIN 8.9 gm/dL (13.0-16.0)
[2016-08-29 04:38] LABS: ARTERIAL BLD GAS O2 SATURATION 95.9 % (90.0-100.0); ARTERIAL BLOOD GAS CARBOXY HB 1.4 %sat (0.0-9.0); ARTERIAL BLOOD GAS HCO3 31.3 mmol/L; ARTERIAL BLOOD GAS MET HB 0.8 %sat (0.0-2.0); ARTERIAL BLOOD GAS PCO2 41.4 mmHg (35.0-45.0); ARTERIAL BLOOD GAS PO2 83.2 mmHg (80.0-100); ARTERIAL BLOOD GAS pH 7.488 (7.350-7.450)
[2016-08-29 04:41] LABS: ARTERIAL BLOOD GAS ALLEN TEST NORMAL; ARTERIAL BLOOD GAS ART SITE LEFT RADIAL; ARTERIAL BLOOD GAS DELIVERY VENT; ARTERIAL BLOOD GAS VENT MODE AC; ARTERIAL DRAW? YES
[2016-08-29 05:55] LABS: BASOPHIL% 0.3 % (0-2.5); EOSINOPHIL# 0.1 X10e3 (0-0.7); EOSINOPHIL% 0.6 % (0.0-7.0); HEMATOCRIT 28.3 % (38.0-50.0); HEMOGLOBIN 9.1 gm/dL (13.0-16.0); LYMPHOCYTE# 1.3 X10e3 (1.0-3.5); LYMPHOCYTE% 10.6 % (17.0-45.0); MEAN CELL VOLUME 83.4 FL (83-96); MEAN CORPUSCULAR HEMOGLOBIN 26.7 PG (28-34); MEAN CORPUSCULAR HGB CONC 32.1 g/dL (30-36); MEAN PLATELET VOLUME 9.7 FL (6.5-11.5); MONOCYTE# 0.9 X10e3 (0-1.0); MONOCYTE% 7.1 % (3.0-12.0); NEUTROPHIL# 9.7 X10e3 (1.5-7.1); NEUTROPHIL% 81.4 % (40-75); PLATELET COUNT 210 X10e3 (140-420); RED BLOOD COUNT 3.39 X10e (3.90-5.60); RED CELL DISTRIBUTION WIDTH 16.8 % (11.0-15.5); WHITE BLOOD COUNT 11.9 X10e3 (4.0-10.5)
[2016-08-29 06:14] LABS: DIFF IND NO
[2016-08-29 06:38] LABS: ALBUMIN SERUM 2.9 g/dL (3.5-5.0); BILIRUBIN,TOTAL 0.7 mg/dL (0.2-2.0); BUN/CREATININE RATIO 13.33; CALCIUM SERUM 7.8 mg/dL (8.4-10.2); CREATININE SERUM 1.2 mg/dL (0.6-1.4); GLOM FILT RATE Estimated 65.4 mL/min (>60); POTASSIUM 3.1 mmol/L (3.5-5.1); PROTEIN TOTAL SERUM 6.4 g/dL (6.0-8.3)
[2016-08-29 12:18] LABS: HEMATOCRIT 28.5 % (38.0-50.0); HEMOGLOBIN 9.1 gm/dL (13.0-16.0)
[2016-08-29 12:49] LABS: CALCIUM SERUM 7.9 mg/dL (8.4-10.2); MAGNESIUM 1.4 mg/dL (1.6-3.0)
[2016-08-29 13:30] LABS: ARTERIAL BLD GAS O2 SATURATION 95.8 % (90.0-100.0); ARTERIAL BLOOD GAS CARBOXY HB 1.2 %sat (0.0-9.0); ARTERIAL BLOOD GAS HCO3 32.5 mmol/L; ARTERIAL BLOOD GAS MET HB 0.6 %sat (0.0-2.0); ARTERIAL BLOOD GAS PCO2 44.3 mmHg (35.0-45.0); ARTERIAL BLOOD GAS PO2 86.6 mmHg (80.0-100); ARTERIAL BLOOD GAS pH 7.475 (7.350-7.450)
[2016-08-29 13:31] LABS: ARTERIAL BLOOD GAS ALLEN TEST NORMAL; ARTERIAL BLOOD GAS ART SITE RIGHT RADIAL; ARTERIAL BLOOD GAS VENT MODE CPAP; ARTERIAL DRAW? YES
[2016-08-29 19:54] LABS: HEMATOCRIT 29.8 % (38.0-50.0); HEMOGLOBIN 9.5 gm/dL (13.0-16.0)
[2016-08-30 04:38] LABS: ARTERIAL BLOOD GAS PCO2 42.6 mmHg (35.0-45.0); ARTERIAL BLOOD GAS pH 7.492 (7.350-7.450)
[2016-08-30 04:39] LABS: ARTERIAL BLD GAS O2 SATURATION 95.5 % (90.0-100.0); ARTERIAL BLOOD GAS ALLEN TEST NORMAL; ARTERIAL BLOOD GAS ART SITE RIGHT RADIAL; ARTERIAL BLOOD GAS CARBOXY HB 1.7 %sat (0.0-9.0); ARTERIAL BLOOD GAS DELIVERY NASAL CANNULA; ARTERIAL BLOOD GAS HCO3 32.6 mmol/L; ARTERIAL BLOOD GAS MET HB 0.6 %sat (0.0-2.0); ARTERIAL DRAW? YES
[2016-08-30 06:08] LABS: BASOPHIL# 0.1 X10e3 (0-0.3); BASOPHIL% 0.6 % (0-2.5); EOSINOPHIL# 0.1 X10e3 (0-0.7); EOSINOPHIL% 0.7 % (0.0-7.0); HEMATOCRIT 31.3 % (38.0-50.0); HEMOGLOBIN 10.1 gm/dL (13.0-16.0); LYMPHOCYTE# 1.1 X10e3 (1.0-3.5); LYMPHOCYTE% 10.4 % (17.0-45.0); MEAN CELL VOLUME 82.9 FL (83-96); MEAN CORPUSCULAR HEMOGLOBIN 26.6 PG (28-34); MEAN CORPUSCULAR HGB CONC 32.1 g/dL (30-36); MEAN PLATELET VOLUME 9.4 FL (6.5-11.5); MONOCYTE# 0.9 X10e3 (0-1.0); MONOCYTE% 8.3 % (3.0-12.0); NEUTROPHIL# 8.6 X10e3 (1.5-7.1); PLATELET COUNT 217 X10e3 (140-420); RED BLOOD COUNT 3.78 X10e (3.90-5.60); RED CELL DISTRIBUTION WIDTH 16.6 % (11.0-15.5); WHITE BLOOD COUNT 10.7 X10e3 (4.0-10.5)
[2016-08-30 06:33] LABS: DIFF IND NO
[2016-08-30 07:04] LABS: ALBUMIN SERUM 2.7 g/dL (3.5-5.0); BILIRUBIN,TOTAL 1.8 mg/dL (0.2-2.0); BUN/CREATININE RATIO 12.72; CALCIUM SERUM 8.3 mg/dL (8.4-10.2); CREATININE SERUM 1.1 mg/dL (0.6-1.4); GLOM FILT RATE Estimated 72.6 mL/min (>60); MAGNESIUM 1.5 mg/dL (1.6-3.0); POTASSIUM 3.5 mmol/L (3.5-5.1); PROTEIN TOTAL SERUM 6.3 g/dL (6.0-8.3)
[2016-08-30] MEDS ORDERED: AMLODIPINE BESY10 MG PO (22:39)
[2016-08-30] MEDS ORDERED: COGENTIN1 M1 PO (22:40)
[2016-08-30] MEDS ORDERED: FINASTERIDE5 M1 PO (22:41)
[2016-08-30] MEDS ORDERED: HALDOL PO (22:42)
[2016-08-30] MEDS ORDERED: FLOMAX0.4 M1 PO (22:43)
[2016-08-31 10:31] LABS: BASOPHIL# 0.1 X10e3 (0-0.3); EOSINOPHIL# 0.1 X10e3 (0-0.7); EOSINOPHIL% 0.8 % (0.0-7.0); HEMOGLOBIN 9.9 gm/dL (13.0-16.0); LYMPHOCYTE# 0.9 X10e3 (1.0-3.5); LYMPHOCYTE% 9.8 % (17.0-45.0); MEAN CELL VOLUME 82.4 FL (83-96); MEAN CORPUSCULAR HEMOGLOBIN 26.3 PG (28-34); MEAN CORPUSCULAR HGB CONC 31.9 g/dL (30-36); MEAN PLATELET VOLUME 9.1 FL (6.5-11.5); MONOCYTE# 0.8 X10e3 (0-1.0); MONOCYTE% 8.2 % (3.0-12.0); NEUTROPHIL# 7.8 X10e3 (1.5-7.1); NEUTROPHIL% 80.2 % (40-75); PLATELET COUNT 210 X10e3 (140-420); RED BLOOD COUNT 3.77 X10e (3.90-5.60); RED CELL DISTRIBUTION WIDTH 16.8 % (11.0-15.5); WHITE BLOOD COUNT 9.7 X10e3 (4.0-10.5)
[2016-08-31 10:32] LABS: DIFF IND NO
[2016-08-31 10:56] LABS: ALBUMIN SERUM 2.7 g/dL (3.5-5.0); BILIRUBIN,TOTAL 1.3 mg/dL (0.2-2.0); BUN/CREATININE RATIO 13.63; CALCIUM SERUM 8.6 mg/dL (8.4-10.2); CREATININE SERUM 1.1 mg/dL (0.6-1.4); GLOM FILT RATE Estimated 72.6 mL/min (>60); MAGNESIUM 1.5 mg/dL (1.6-3.0); POTASSIUM 3.7 mmol/L (3.5-5.1); PROTEIN TOTAL SERUM 6.9 g/dL (6.0-8.3)
[2016-09-01 08:05] LABS: HEMATOCRIT 32.1 % (38.0-50.0); HEMOGLOBIN 10.2 gm/dL (13.0-16.0); MEAN CELL VOLUME 82.9 FL (83-96); MEAN CORPUSCULAR HEMOGLOBIN 26.3 PG (28-34); MEAN CORPUSCULAR HGB CONC 31.7 g/dL (30-36); MEAN PLATELET VOLUME 9.3 FL (6.5-11.5); RED BLOOD COUNT 3.87 X10e (3.90-5.60); RED CELL DISTRIBUTION WIDTH 15.9 % (11.0-15.5); WHITE BLOOD COUNT 9.2 X10e3 (4.0-10.5)
[2016-09-01 08:37] LABS: BUN/CREATININE RATIO 15.45; CALCIUM SERUM 8.9 mg/dL (8.4-10.2); CREATININE SERUM 1.1 mg/dL (0.6-1.4); GLOM FILT RATE Estimated 72.6 mL/min (>60); MAGNESIUM 1.8 mg/dL (1.6-3.0); POTASSIUM 3.3 mmol/L (3.5-5.1)
[2016-09-01] MEDS ORDERED: ACETAMINOPHEN650 M1 PO (15:06)
[2016-09-01] MEDS ORDERED: BUMEX2 MG PO (15:08)
[2016-09-01] MEDS ORDERED: COREG12.5 MG PO (15:08)
[2016-09-01] MEDS ORDERED: ATORVASTATIN CA40 MG PO (15:09)
[2016-09-01] MEDS ORDERED: ZESTRIL5 MG PO (15:10)
[2016-09-01] MEDS ORDERED: ASPIRIN81 MG PO (15:11)
[2016-09-01] MEDS ORDERED: PROTONIX PO (15:12)
[2016-09-01] MEDS ORDERED: ALDACTONE PO (15:12)
[2016-09-01] MEDS ORDERED: AUGMENTIN PO (15:13)
[2016-09-01] MEDS ORDERED: CELEXA20 M1 (16:24)
[2016-09-01] MEDS ORDERED: CLOPIDOGREL75 MG PO (16:24)
[2016-09-01] MEDS ORDERED: JANUVIA PO (16:25)
[2016-09-01] MEDS ORDERED: LEVEMIR100 UNITS/ (16:26)
[2016-09-01] MEDS ORDERED: METFORMIN PO (16:27)
[2016-09-01] MEDS ORDERED: HUMALOG100 UNIT/1 (16:27)
== END 2016-09-01 18:41 | disposition home health service (06) | DRG 208 ==
LOC: CED 21:15 → CEDOF 08-28 00:32 → CICCU3 08-28 01:34 → C3A PCU 08-30 17:02
PROVIDERS: Emergency Medicine; Family Medicine; Internal Medicine; Internal Medicine Cardiovascular Disease; Nurse Practitioner
PROC: 30233N1 Transfusion of Nonautologous Red Blood Cells into Peripheral Vein, Percutaneous Approach (ICD-10-PCS; principal; 2016-08-28)
PROC: 5A1945Z Respiratory Ventilation, 24-96 Consecutive Hours (ICD-10-PCS; 2016-08-28)
PROC: 0BH17EZ Insertion of Endotracheal Airway into Trachea, Via Natural or Artificial Opening (ICD-10-PCS; 2016-08-28)
PROC: B24BZZZ Ultrasonography of Heart with Aorta (ICD-10-PCS; 2016-08-28)
PROC: 0DJ08ZZ Inspection of Upper Intestinal Tract, Via Natural or Artificial Opening Endoscopic (ICD-10-PCS; 2016-08-29)
DX: J96.02 Acute respiratory failure with hypercapnia (principal); I21.4 Non-ST elevation (NSTEMI) myocardial infarction; J69.0 Pneumonitis due to inhalation of food and vomit; I50.23 Acute on chronic systolic (congestive) heart failure; E11.40 Type 2 diabetes mellitus with diabetic neuropathy, unspecified; D62 Acute posthemorrhagic anemia; I42.9 Cardiomyopathy, unspecified; K92.2 Gastrointestinal hemorrhage, unspecified; I25.10 Atherosclerotic heart disease of native coronary artery without angina pectoris; Z95.5 Presence of coronary angioplasty implant and graft; E78.00 Pure hypercholesterolemia, unspecified; M19.90 Unspecified osteoarthritis, unspecified site; M54.9 Dorsalgia, unspecified; G89.29 Other chronic pain; F32.9 Major depressive disorder, single episode, unspecified; Z79.4 Long term (current) use of insulin; Z96.652 Presence of left artificial knee joint; I11.0 Hypertensive heart disease with heart failure; E66.9 Obesity, unspecified; Z68.31 Body mass index [BMI] 31.0-31.9, adult; Z86.73 Personal history of transient ischemic attack (TIA), and cerebral infarction without residual deficits; E78.5 Hyperlipidemia, unspecified; Z79.01 Long term (current) use of anticoagulants; I48.91 Unspecified atrial fibrillation; Z96.641 Presence of right artificial hip joint; M62.3 Immobility syndrome (paraplegic)
CPT/HCPCS: 36415; 36430; 36600; 71010; 71275; 80048; 80053; 80061; 80076; 81003; 82310; 82550; 82553; 82803; 82947; 83605; 83735; 83880; 84484; 85014; 85018; 85025; 85027; 85610; 85730; 86850; 86900; 86901; 86923; 87040; 92610; 92950; 93005; 93306; 94002; 94003; 94760; 94761; 96361; 96374; 96375; 97110; 97162; 97166; 97530; 97535; 99291; C9113; G8978-GP; G8979-GP; G8987-GO; G8988-GO; G8996-GN; G8997-GN; G8998-GN; J0171; J1815; J1940; J2250; J2270; J2543; J3010; J3430; J3475; P9016; P9059; Q9967

== ENCOUNTER 2016-09-13 11:52 | Inpatient (IN) | payer MEDICARE, OTHER ==
--- NOTE | ~2016-09-13 | A ---
[facility] Nutrition Therapy DATE: 09/15/16 Patient: ANJUM BOUCHERKOBE Physician: DRU Address: [address] [place] [address] Room/Bed: [address] [place] [address], Zip: [place] [address] Admit Date: 09/13/16 Date of : [birth year] Height: 5 9 Weight: 200 90.9 NUTRITIONAL ASSESSMENT: REASON: CONSULT RE: LOW FIBER DIET EDUCATION DIET: LOW FIBER HT: 5'10", WT: 200# (91 KG), BMI: 28.7 Assessment: RD PROVIDED WRITTEN AND VERBAL LOW FIBER + CC+HH DIET EDUCATION. RD PROVIDED LIST OF FOODS TO AVOID/LIMIT AND FOODS TO EAT MORE OFTEN. RD ALSO INCLUDED IMPLICATIONS AND REASONING FOR FOLLOWING SPECIFIC DIET AT THIS TIME. RD STRESSED IMPORTANCE OF FOLLOWING UP WITH MD FOR TIME FRAME OF FOLLOWING LOW FIBER DIET. PT AGREED AND DEMONSTRATED UNDERSTANDING OF THE TOPIC. PT REPORTED NO DIET QUESTIONS AT THIS VISIT. EXPECT MILD COMPLIANCE OF DIET AT HOME. RD TO REMAIN AVAILABLE. OF NOTE, RD ASSESSED AND FOLLOW-UP'D UP WITH PT AUGUST 28-2016. PT WAS ADMITTED FOR SOA, ?GI BLEED, CHF. Recommendations: 1. ENCOURAGE COMPLIANCE OF CURRENT DIET ORDER. CONSIDER ADDING CC+HH TO CURRENT DIET ORDER 2' PMH 2. RE-CONSULT RD IF FURTHER DIET EDUCATION REQUESTED RD WILL F/U PER PROTOCOL Respectfully, DIAMOND DIAZ MS, RD, LD Food and Nutritional Services [facility] cc: client file
--- NOTE | ~2016-09-13 | CR2 ---
[facility] A Service of [facility] RADIOLOGY TEXT RESULTS PATIENT: ANJUM DEVRIES LOCATION: [facility] 338-01 : [birth year] UNIT #: [id number] AGE: [address]: MARK CORDERO MD SEX: M ORDER DR: [id number] [place] [address] [facility]. [place], [place] [address] [id number] I MR#: [id number] Acc #: [id number] NAME: ANJUM DEVRIES : 1955 SEX: M STUDY DATE/TIME: UNIT: [facility] ROOM: [facility] STUDY DESCRIPTION: CR Abdomen Acute Series Attending Physician: Mark Cordero M.D. Ordering Physician: Bill Hardy M.D. Primary Care Physician: Prashanth Black M.D. MEDICAL IMAGING REPORT This report is preliminary unless electronic signature is present EXAM Acute abdomen series 09/13/2016 1129 hours HISTORY 61-year-old man with history of diabetes, CVA, myocardial infarction complaining of abdominal pain with blood loss today. Patient sent for evaluation from Dr. Renae's office. COMPARISON 12/29/2015 FINDINGS Upright chest film demonstrates mild cardiomegaly and tortuous aorta similar to chest film 07/04/2016. Calcified densities at the left base unchanged. No acute pulmonary density. Supine and upright views of the abdomen demonstrate a nonspecific bowel gas pattern without obstruction. There is no free air or bowel wall thickening. Postop change right hip replacement. IMPRESSION 1. Stable mild cardiomegaly and calcified densities at the left base. No acute pulmonary or pleural findings. 2. No evidence of bowel obstruction, free air or bowel wall thickening. There is moderate stool in the distal colon. 3. Stable underlying degenerative changes of the lumbar spine. Dictated by... Heather No M.D. THIS IS AN ELECTRONICALLY VERIFIED REPORT Heather No M.D. at 09/13/2016 2:31 PM SMM/to [facility] A Service of [facility] RADIOLOGY TEXT RESULTS PATIENT: ANJUM DEVRIES LOCATION: [facility] 338-01 : [birth year] UNIT #: [id number] AGE: [address]: MARK CORDERO MD SEX: M ORDER DR: TD: 09/13/2016 13:08 JOB #: [id number] MEDICAL IMAGING REPORT Page 1 of 1 COPY
--- NOTE | ~2016-09-13 | HP ---
Unit #: [id number] #: [id number] Patient: ANJUM DEVRIES [id number] [address] [place], [place] [address] [id number] I MR#: [id number] NAME: ANJUM DEVRIES ROOM: 61416 Age: 61 Sex: M Admission Date: 09/13/2016 : 1955 Attending Physician: Thu Cordero M.D. Primary Care Physician: Prashanth Black M.D. HISTORY AND PHYSICAL CHIEF COMPLAINT Abnormal labs. HISTORY OF PRESENT ILLNESS The patient is a 61-year-old male with a history of coronary artery disease, with mild left ventricular dysfunction and diabetes mellitus. He was recently discharged from the hospital on 09/01/2016 with acute respiratory failure and even heart failure. The patient had upper endoscopy on 08/29/[address] Renae, that showed negative upper endoscopy. The patient was sent from the primary care physician's office with hemoglobin of 7.7. The patient also complains of feeling dizzy and passing black stools for the last few days. The patient is on aspirin and Plavix for the coronary artery disease. He denies any fever, chills, nausea, vomiting or palpitations. The patient's hemoglobin today is 7.4 and hematocrit is 23.4. The patient is being admitted for the above reasons. PAST MEDICAL HISTORY 1. History of degenerative joint disease. 2. Coronary artery disease, status post stent placement. 3. Hyperlipidemia. 4. Diabetes. 5. Depression. 6. Obesity. 7. Peripheral neuropathy. 8. Previous CVA with mild right-sided weakness. 9. Balance issues. 10. Proteinuria. 11. Chronic low back pain. PAST SURGICAL HISTORY 1. Right knee replacement times two. 2. Hip arthroplasty. 3. Pleural cavity biopsy. 4. Left foot fracture and repair. 5. Right femur fracture and repair. 6. Gastric bypass surgery. SOCIAL HISTORY The patient lives with his . He stopped smoking in 2016 after 20 year history of tobacco abuse. He does not drink alcohol. FAMILY HISTORY Positive for degenerative joint disease, asthma and hyperlipidemia. Unit #: [id number] #: [id number] Patient: ANJUM DEVRIES ALLERGIES No known drug allergies. HOME MEDICATIONS 1. Aspirin. 2. Aldactone. 3. Protonix. 4. Augmentin. 5. Celexa. 6. Tylenol. 7. Coreg. 8. Bumex. 9. Lipitor. 10. Zestril. 11. Plavix. 12. Januvia. 13. Levemir. 14. Glucophage. 15. Humalog. REVIEW OF SYSTEMS Fourteen point review of systems was done and only pertinent positive findings are described above. The remaining are negative. PHYSICAL EXAMINATION GENERAL: The patient is lying on the bed in no acute distress. VITALS: Temperature 98.6, pulse 92, respiratory rate 18, blood pressure 109/52, saturating 100% on room air. HEENT: Head atraumatic, normocephalic. Pupils equal, round and reactive to light and accommodation. Extraocular movements are intact. NECK: Supple. LUNGS: Decreased air entry at the bases. HEART: Regular rate and rhythm. ABDOMEN: Soft. Positive bowel sounds. EXTREMITIES: No cyanosis or clubbing. He has right knee incision. NEUROLOGIC: Alert, awake and oriented. No gross focal motor deficits. DIAGNOSTIC STUDIES LABORATORY: White blood cell count 18.5, hemoglobin 7.4, hematocrit 23.4, platelets 363, neutrophils 79.7. Chemistry pending. (1) blood test by the emergency room physician is positive. The patient had a blood draw from the outside from yesterday with creatinine of 1.94, sodium 135, potassium 4, chloride 93, bicarb 30, AST 10, ALT 7. ASSESSMENT 1. GI bleed. 2. Anemia. 3. Acute kidney injury. PLAN Admit to inpatient with telemetry. The patient will have a GI consult for the colonoscopy, acute upper endoscopy and small bowel capsule endoscopy for the bleeding. The patient will continue with gentle IV fluids at 50 mL an hour for 10 hours and continue with Protonix drip. Type and cross one unit of packed red blood cells. Hold aspirin and Plavix. Further recommendations to follow. Unit #: [id number] #: [id number] Patient: ANJUM DEVRIES Dictated by Deann Moreno TD: 09/13/2016 13:11 JOB #: [id number] HISTORY AND PHYSICAL Page 1 of 1 X X HISTORY AND PHYSICAL
--- NOTE | ~2016-09-13 | OR ---
Unit #: [id number] #: [id number] Patient: ANJUM DEVRIES [id number] [address] [place], [place] [address] [id number] I MR#: [id number] NAME: ANJUM DEVRIES ROOM: 338 Date of Procedure: 09/13/2016 Admission Date: 09/13/2016 Surgeon: Sudhakar Corley Jr., M.D. : 1955 Attending Physician: Marina Aguero M.D. Primary Care Physician: Prashanth Black M.D. OPERATIVE REPORT INDICATIONS FOR PROCEDURE The patient is a 61-year-old white male who was admitted with complaints of some GI bleeding and anemia. It was felt he needed upper and lower endoscopy. He has had a prep on the floor. He is brought to the operating room at this time for EGD and colonoscopy. He understands the procedures including the risks, including that of perforation and bleeding, and consents. PREOPERATIVE DIAGNOSIS Possible GI bleeding with anemia. POSTOPERATIVE DIAGNOSES On upper endoscopy, the patient was noted to have a gastric erosion in the cardia along with some mild gastritis. On colonoscopy at the distal ileum, he was noted to have some fresh blood in the cecum along with some irritated mucosa compatible with cecitis without ulceration. He was also noted to have evidence of some mild diverticulosis of left colon. ANESTHESIA MAC anesthesia. PROCEDURE PERFORMED Flexible fiberoptic esophagogastroduodenoscopy with biopsy of the cardia in an area of erosion with cold biopsy forceps and flexible colonoscopy to the distal ileum with biopsies of the cecum. DESCRIPTION OF PROCEDURE The patient was positioned in Piedra position with left side down. After being given MAC anesthesia, the Olympus XQ scope was passed through the proximal esophagus. The entire esophagus was examined. There was no evidence of any esophagitis. No evidence of any stenosis. The scope was advanced through the GE junction into the cardia, on the fundic and antral region the stomach and retroflexed back up to the area of the cardia. There was an approximately 0.5 cm area of erosion along with some mild gastritis. Biopsies were taken from this for pathology without significant bleeding. The scope was then straightened and advanced down the prepyloric region through the pylorus and the duodenal bulb and down to the second portion of the duodenum. The entire duodenal portion examination was within normal limits. The scope was then slowly removed. The patient was repositioned for colonoscopy. Digital rectal examination was performed, which revealed no palpable mass or tenderness. No blood or stool in the rectal ampulla. Prostate was normal by palpation. The Unit #: [id number] #: [id number] Patient: ANJUM DEVRIES sphincteric tone was markedly diminished. The Olympus colonoscope was advanced through the anal canal up the rectum and retroflexed down to the anorectal region. There were multiple internal hemorrhoids felt to be of no major significance. No evidence of any fissures. The scope was then straightened and advanced up the rectosigmoid, in the sigmoid and descending colon areas, around the splenic flexure, the transverse colon, around hepatic flexure and ascending colon, down the area of the cecum. The light pipe of the scope could be seen transilluminating through right lower quadrant abdominal wall area. The scope was advanced up the distal ileum for approximately 10 to 12 inches. There was no evidence of any ileitis or inflammatory bowel disease. In the area of the cecum, there was some hemorrhage with what appeared to possibly be some mild cecitis without ulceration. Several biopsies were taken from this without significant bleeding. There were also several diverticula on the left side of the colon. There were no tumors, polyps, cancer, AVMs and except for the area in the cecum, no evidence of any other colitis. There was no evidence of any diverticulitis. The scope was removed. The patient tolerated the procedure well and discharged back to floor in satisfactory condition. Dictated by... Sudhakar Corley Jr., M.D. JMB/amairani TD: 09/14/2016 11:06 JOB #: [id number] OPERATIVE REPORT Page 1 of 1 X Sudhakar Corley MD X PROCEDURE OPERATIVE NOTE
--- NOTE | ~2016-09-13 | DS ---
Unit #: [id number] #: [id number] Patient: ANJUM DEVRIES [id number] [address] [place], [place] [address] [id number] MR#: [id number] NAME: ANJUM DEVRIES ROOM: 338 Age: 61 Sex: M Admission Date: 09/13/2016 : 1955 Discharge Date: 09/16/2016 Attending Physician: Marina Aguero M.D. Primary Care Physician: Prashanth Black M.D. DISCHARGE SUMMARY REASON FOR ADMISSION Abnormal laboratory studies. HISTORY OF PRESENT ILLNESS/HOSPITAL COURSE Patient is a 61-year-old male with a prior history of coronary artery disease with stent placement I believe in September 2015 who presented to his primary care physician's office and underwent routine laboratory studies after he stated that he had been passing black stools for the past several days prior to being evaluated. His hemoglobin was noted to be 7.7, and subsequently, he was asked to go to the emergency room. Initially, his hemoglobin was noted to be 7.4, and subsequently, he was admitted for further evaluation and/or workup. He was placed on telemetry floor. Consultation was placed to [facility]. Patient eventually underwent upper GI endoscopy, as well as colonoscopy, through hospital course. On upper GI endoscopy, it showed localized gastritis with erosions. On colonoscopy, findings were more consistent with hemorrhagic colitis. No acute masses were noted. From a surgical standpoint, patient was recommended to be placed on Protonix, as well as Flagyl 250 mg p.o. q.6. He was gradually transitioned to a low-residue diet which he tolerated well. They also recommended Carafate 1 gram p.o. t.i.d. with meals at time of discharge as well in regards to the patient's gastritis. Through hospital course, patient did receive transfusions, in total of four units. Today, at time of discharge, patient's hemoglobin currently stands at 10.3. Patient's MCV is decreased at 81.6. CMP shows at time of discharge a creatinine of 1.3 and GFR 59 representing patient's baseline numbers. Patient states that he underwent stent placement in September 2015. For now, will place his Plavix on hold at time of discharge, and I have asked him to follow up with Dr. Joseph, his washing machine loader, for consideration of long-term management of this medication. In the past, he has been placed on anticoagulation per his recollection and states that he does have recurrent GI bleeding. Therefore, I will defer this decision for chronic long-term anticoagulation to his washing machine loader. Also noted, the patient did have slightly decreased blood sugars through hospital course, and his Levemir dosage was decreased to 40 units subcutaneous b.i.d. Unit #: [id number] #: [id number] Patient: ANJUM DEVRIES FINAL DISCHARGE DIAGNOSES 1. Hemorrhagic colitis. 2. Gastritis. 3. Acute blood loss anemia. 4. Coronary artery disease with stent placement I believe in September 2015. 5. Acute kidney injury on admission, now resolved. 6. Mild cognitive impairment. 7. Anxiety/depression. 8. Diabetes with insulin dependence. 9. Hypertension. 10. Hyperlipidemia. 11. Gastroesophageal reflux disease. FINAL DISCHARGE MEDICATIONS 1. Protonix 40 mg p.o. daily. 2. Aldactone 12.5 mg p.o. daily. 3. Carafate 1 g p.o. t.i.d. with meals. 4. Metronidazole 250 mg p.o. q.6. x10 days. 5. Ferrous gluconate 324 mg p.o. daily [id number]-[id number] medication. 6. Levemir 40 units subcutaneous b.i.d. 7. Humalog 10 units t.i.d. with meals. 8. Zestril 5 mg p.o. at bedtime. 9. Lipitor 40 mg p.o. daily. 10. Bumex 2 mg p.o. b.i.d. 11. Coreg 12.5 mg p.o. b.i.d. 12. Januvia 25 mg p.o. daily. 13. Glucophage 500 mg p.o. t.i.d. 14. Celexa 20 mg p.o. daily. 15. Tylenol 650 mg p.o. q.6 p.r.n. DISCHARGE CONDITION Stable. DISCHARGE DISPOSITION Home. FOLLOWUP With Dr. Joseph, cardiology services, within three to four weeks for decision on chronic anticoagulation/antiplatelet therapy. Dictated by... Deann Muñoz/guicho TD: 09/16/2016 21:19 JOB #: [id number] DISCHARGE SUMMARY Page 1 of 1 X Marina Aguero MD DISCHARGE SUMMARY
--- NOTE | ~2016-09-13 | CO ---
Unit #: [id number] #: [id number] Patient: ANJUM WILLINGHAM [id number] [facility] [address] [facility]. [place], [place] [address] [id number] MR#: [id number] NAME: ANJUM WILLINGHAM ROOM: 338 Age: 61 Sex: M Admission Date: 09/13/2016 : 1955 Attending Physician: Marina Aguero M.D. Primary Care Physician: Prashanth Black M.D. Consultation Date: 09/13/2016 CONSULTATION REPORT REASON FOR CONSULTATION Significant anemia. Thank you very much for asking us to see Mr. Willingham. HISTORY OF PRESENT ILLNESS He is a 61-year-old white male. He presents with a history of coronary artery disease and diabetes. He was discharged from [facility] on 09/01/16 with acute respiratory failure and heart failure. He was found to have significant anemia on his last admission and had upper endoscopy performed by Dr. Renae that showed no significant findings. This was on 08/29/16. The patient was sent back in and admitted from his primary care physician's office with a hemoglobin of 7.7. He was feeling dizzy and passing dark stools. He has been on aspirin and Plavix for coronary artery disease. He denies any abdominal pain or discomfort. He presents at this time for further evaluation and treatment. PAST MEDICAL HISTORY Degenerative joint disease, coronary artery disease, hyperlipidemia, diabetes, depression, obesity, peripheral neuropathy, history of CVA with mild right-sided weakness, chronic low back pain. PAST SURGICAL HISTORY Right knee replacement x2, hip replacement, left foot fracture and repair, right femur fracture and repair. No previous abdominal surgeries. SOCIAL HISTORY No tobacco use or alcohol use. FAMILY HISTORY Noncontributory. ALLERGIES No known medical allergies. MEDICATIONS Please see medication reconciliation sheet. IMMUNIZATION STATUS Unknown. PHYSICAL EXAMINATION GENERAL APPEARANCE: Well-developed, well-nourished white male in no Unit #: [id number] #: [id number] Patient: ANJUM WILLINGHAM apparent distress, awake, alert, oriented x3. VITAL SIGNS: Temperature 97.8. Pulse 102. Respirations 20. Blood pressure 127/65. NECK: Supple. No thyromegaly or adenopathy. BACK: No CVA or spinous tenderness. ABDOMEN: Flat, soft, nontender. DIAGNOSTIC STUDIES LABORATORY: CMP with a glucose of 78, BUN 74, creatinine 2.0. Normal liver function studies. PT 7.4, PTT 24.7. White count 18.5 with a hemoglobin of 7.4, hematocrit 23.4, platelet count 363,000. IMPRESSION A 61-year-old white male with significant anemia that is mildly microcytic hyperchromic. We have explained to the patient that we feel he needs to have a repeat upper endoscopy as well as colonoscopy. All the risks and benefits have been fully explained to the patient in detail including the risk of bleeding, perforation, emergency surgery, , transfer and other risks. he understands completely and requests we proceed. Dictated by... Deann Gross/cuong TD: 09/14/2016 08:39 JOB #: [id number] CONSULTATION REPORT Page 1 of 1 X Louis Waller MD X CONSULTATION REPORT
[2016-09-13 11:23] LABS: BASOPHIL# 0.2 X10e3 (0-0.3); BASOPHIL% 1.1 % (0-2.5); EOSINOPHIL# 0.2 X10e3 (0-0.7); HEMATOCRIT 23.4 % (38.0-50.0); HEMOGLOBIN 7.4 gm/dL (13.0-16.0); LYMPHOCYTE# 2.2 X10e3 (1.0-3.5); LYMPHOCYTE% 11.9 % (17.0-45.0); MEAN CELL VOLUME 81.3 FL (83-96); MEAN CORPUSCULAR HEMOGLOBIN 25.7 PG (28-34); MEAN CORPUSCULAR HGB CONC 31.6 g/dL (30-36); MEAN PLATELET VOLUME 10.5 FL (6.5-11.5); MONOCYTE# 1.2 X10e3 (0-1.0); MONOCYTE% 6.3 % (3.0-12.0); NEUTROPHIL# 14.8 X10e3 (1.5-7.1); NEUTROPHIL% 79.7 % (40-75); PLATELET COUNT 363 X10e3 (140-420); RED BLOOD COUNT 2.88 X10e (3.90-5.60); WHITE BLOOD COUNT 18.5 X10e3 (4.0-10.5)
[2016-09-13 11:34] LABS: PARTIAL THROMBOPLASTIN TIME 24.7 SECONDS (23.5-31.3); PROTHROMBIN TIME (PATIENT) 10.4 SECONDS (9.6-11.5)
[2016-09-13 11:43] LABS: DIFF IND YES
[2016-09-13 11:47] LABS: ALBUMIN SERUM 3.5 g/dL (3.5-5.0); BILIRUBIN, DIRECT 0.2 mg/dL (0.0-0.2); BILIRUBIN,INDIRECT 0.4 mg/dL (0.0-0.9); BILIRUBIN,TOTAL 0.6 mg/dL (0.2-2.0); CALCIUM SERUM 9.2 mg/dL (8.4-10.2); GLOM FILT RATE Estimated 35.2 mL/min (>60); POTASSIUM 4.5 mmol/L (3.5-5.1); PROTEIN TOTAL SERUM 8.1 g/dL (6.0-8.3)
[2016-09-13 11:48] LABS: ANISOCYTOSIS MOD; PLATELET ESTIMATE NORMAL (NORMAL)
[2016-09-13 11:49] LABS: HYPOCHROMIA MOD; MICROCYTOSIS SL
[~2016-09-13 11:52] MED LIST changes: +ACETAMINOPHEN650 M1 PO; +ALDACTONE PO; +AMLODIPINE BESY10 MG PO; +ATORVASTATIN CA40 MG PO; +AUGMENTIN PO; +BUMEX2 MG PO; +COGENTIN1 M1 PO; +FINASTERIDE5 M1 PO; +FLOMAX0.4 M1 PO; +HALDOL PO; +HUMALOG100 UNIT/1; +LEVEMIR100 UNITS/; +METFORMIN PO; +PROTONIX PO
[2016-09-14 05:20] LABS: BASOPHIL# 0.1 X10e3 (0-0.3); EOSINOPHIL# 0.1 X10e3 (0-0.7); EOSINOPHIL% 1.5 % (0.0-7.0); HEMATOCRIT 24.7 % (38.0-50.0); HEMOGLOBIN 7.9 gm/dL (13.0-16.0); LYMPHOCYTE# 1.5 X10e3 (1.0-3.5); LYMPHOCYTE% 17.8 % (17.0-45.0); MEAN CELL VOLUME 79.3 FL (83-96); MEAN CORPUSCULAR HEMOGLOBIN 25.2 PG (28-34); MEAN CORPUSCULAR HGB CONC 31.8 g/dL (30-36); MEAN PLATELET VOLUME 9.4 FL (6.5-11.5); MONOCYTE# 0.7 X10e3 (0-1.0); MONOCYTE% 8.6 % (3.0-12.0); NEUTROPHIL% 71.1 % (40-75); RED BLOOD COUNT 3.12 X10e (3.90-5.60); RED CELL DISTRIBUTION WIDTH 17.8 % (11.0-15.5); WHITE BLOOD COUNT 8.5 X10e3 (4.0-10.5)
[2016-09-14 05:50] LABS: BUN/CREATININE RATIO 34.28; CALCIUM SERUM 9.1 mg/dL (8.4-10.2); CREATININE SERUM 1.4 mg/dL (0.6-1.4); GLOM FILT RATE Estimated 54.2 mL/min (>60); POTASSIUM 3.6 mmol/L (3.5-5.1)
[2016-09-14 13:41] LABS: HEMATOCRIT 25.5 % (38.0-50.0); HEMOGLOBIN 8.2 gm/dL (13.0-16.0)
[2016-09-14 14:50] LABS: FOLATE (FOLIC ACID) 14.9 ng/mL (>5.8)
[2016-09-15 07:38] LABS: HEMATOCRIT 25.8 % (38.0-50.0); HEMOGLOBIN 8.2 gm/dL (13.0-16.0); MEAN CELL VOLUME 80.6 FL (83-96); MEAN CORPUSCULAR HEMOGLOBIN 25.7 PG (28-34); MEAN CORPUSCULAR HGB CONC 31.9 g/dL (30-36); MEAN PLATELET VOLUME 9.6 FL (6.5-11.5); RED BLOOD COUNT 3.2 X10e (3.90-5.60); RED CELL DISTRIBUTION WIDTH 17.7 % (11.0-15.5); WHITE BLOOD COUNT 9.7 X10e3 (4.0-10.5)
[2016-09-15 08:14] LABS: BUN/CREATININE RATIO 23.33; CALCIUM SERUM 9.1 mg/dL (8.4-10.2); CREATININE SERUM 1.2 mg/dL (0.6-1.4); GLOM FILT RATE Estimated 65.4 mL/min (>60); MAGNESIUM 1.5 mg/dL (1.6-3.0); POTASSIUM 3.6 mmol/L (3.5-5.1)
[2016-09-16 00:48] LABS: HEMATOCRIT 31.7 % (38.0-50.0)
[2016-09-16 06:23] LABS: HEMATOCRIT 31.8 % (38.0-50.0); HEMOGLOBIN 10.3 gm/dL (13.0-16.0); MEAN CELL VOLUME 81.6 FL (83-96); MEAN CORPUSCULAR HEMOGLOBIN 26.5 PG (28-34); MEAN CORPUSCULAR HGB CONC 32.4 g/dL (30-36); MEAN PLATELET VOLUME 9.2 FL (6.5-11.5); RED BLOOD COUNT 3.9 X10e (3.90-5.60); WHITE BLOOD COUNT 10.6 X10e3 (4.0-10.5)
[2016-09-16 07:03] LABS: ALBUMIN SERUM 3.1 g/dL (3.5-5.0); BILIRUBIN,TOTAL 0.9 mg/dL (0.2-2.0); CALCIUM SERUM 9.1 mg/dL (8.4-10.2); CREATININE SERUM 1.3 mg/dL (0.6-1.4); GLOM FILT RATE Estimated 59.3 mL/min (>60); MAGNESIUM 1.5 mg/dL (1.6-3.0); POTASSIUM 4.1 mmol/L (3.5-5.1); PROTEIN TOTAL SERUM 7.2 g/dL (6.0-8.3)
[2016-09-16] MEDS ORDERED: GLUCOPHAGE500 MG PO (10:51)
[2016-09-16] MEDS ORDERED: LEVEMIR100 UNITS/ SUBQ (10:53)
[2016-09-16] MEDS ORDERED: FERROUS GLUCON324 M1 PO (10:54)
[2016-09-16] MEDS ORDERED: FLAGYL250 M1 PO (10:55)
[2016-09-16] MEDS ORDERED: CARAFATE1 GM PO (10:56)
== END 2016-09-16 13:00 | disposition home health service (06) | DRG 392 ==
LOC: CED 11:52 → CEDOF 12:04 → C3A PCU 13:40
PROVIDERS: Emergency Medicine; Family Medicine; Internal Medicine; Surgery
PROC: 30233N1 Transfusion of Nonautologous Red Blood Cells into Peripheral Vein, Percutaneous Approach (ICD-10-PCS; 2016-09-13)
PROC: 0DB68ZX Excision of Stomach, Via Natural or Artificial Opening Endoscopic, Diagnostic (ICD-10-PCS; principal; 2016-09-14 08:00)
PROC: 0DBH8ZX Excision of Cecum, Via Natural or Artificial Opening Endoscopic, Diagnostic (ICD-10-PCS; 2016-09-14 08:00)
DX: K52.89 Other specified noninfective gastroenteritis and colitis (principal); N17.9 Acute kidney failure, unspecified; E11.42 Type 2 diabetes mellitus with diabetic polyneuropathy; I69.951 Hemiplegia and hemiparesis following unspecified cerebrovascular disease affecting right dominant side; D62 Acute posthemorrhagic anemia; K92.1 Melena; E11.9 Type 2 diabetes mellitus without complications; F32.9 Major depressive disorder, single episode, unspecified; D50.9 Iron deficiency anemia, unspecified; K25.9 Gastric ulcer, unspecified as acute or chronic, without hemorrhage or perforation; I25.10 Atherosclerotic heart disease of native coronary artery without angina pectoris; Z79.82 Long term (current) use of aspirin; Z95.5 Presence of coronary angioplasty implant and graft; E78.5 Hyperlipidemia, unspecified; E66.9 Obesity, unspecified; Z96.651 Presence of right artificial knee joint; Z87.891 Personal history of nicotine dependence; Z98.84 Bariatric surgery status; Z79.4 Long term (current) use of insulin; M19.90 Unspecified osteoarthritis, unspecified site; K29.70 Gastritis, unspecified, without bleeding; K57.30 Diverticulosis of large intestine without perforation or abscess without bleeding; Z68.29 Body mass index [BMI] 29.0-29.9, adult; G31.84 Mild cognitive impairment of uncertain or unknown etiology
CPT/HCPCS: 36415; 74022; 80048; 80053; 80076; 82607; 82728; 82746; 82947; 83540; 83550; 83735; 85014; 85018; 85025; 85027; 85610; 85730; 86850; 86900; 86901; 86923; 88305; 88312; 94760; 99285; C9113; J1815; J1940; J2250; J3475; P9016